=== PATIENT | female | born 1965 | race African-American/Black ===

== ENCOUNTER 2016-09-08 16:15 | Observation (INO) | payer OTHER ==
[~2016-09-08] VITALS: Ht 172.7 cm; Wt 82.6 kg
[~2016-09-08 16:15] MED LIST: ALPR0.254 PO; ALPR0.5T6 PO; BENZ15SO MM; DIAZ5TAB PO; GABA-585 PO; HYDR-2666 PO; HYDR-971 PO; ONDA4TAB10 SL; OXYC-244 PO; OXYC-250 PO; OXYC-323 PO; OXYC15TA60 PO
[2016-09-08] MEDS ORDERED: ONDANSETRON PF 4 MG/2 ML VIAL. IV PRN ×2 (17:00→19:30)
[2016-09-08] MEDS: HYDROMORPHONE 2 MG/ML VIAL. IV PRN ×4 (17:36→22:26)
[2016-09-08 17:51] LABS: BASO % 1 % (0-3); EOS % 2 % (0-3); HEMATOCRIT 41.7 % (36.0-47.0); HEMOGLOBIN 14.2 g/dL (12.0-15.5); LYMPH # 2.2 x10^3/uL (1.0-4.8); LYMPH % 32 % (24-48); MEAN CORPUSCULAR HEMOGLOBIN 31 pg (25-35); MEAN CORPUSCULAR HGB CONC 34 g/dL (31-37); MEAN CORPUSCULAR VOLUME 91 fL (79-100); MONO % 7 % (0-9); NEUT % 59 % (31-73); PLATELET COUNT 134 x10^3/uL (140-400); RED BLOOD COUNT 4.58 x10^6/uL (3.50-5.40); RED CELL DISTRIBUTION WIDTH 13.9 % (11.5-14.5); WHITE BLOOD COUNT 6.9 x10^3/uL (4.0-11.0)
[2016-09-08 18:23] LABS: CALCIUM 8.9 mg/dL (8.5-10.1); CREATININE 0.9 mg/dL (0.6-1.0); GFR 79.3; POTASSIUM 4.1 mmol/L (3.5-5.1)
[2016-09-08 19:10] LABS: C-REACTIVE PROTEIN 3.8 mg/L (0-3.3)
[2016-09-08] MEDS ORDERED: GADOBUTROL 7.5 MMOL/7.5 ML VIAL IV ONE (19:15)
[2016-09-08] MEDS ORDERED: MORPHINE SULFATE 2 MG/ML DISP.SYRIN. IV PRN (19:30)
--- NOTE | 2016-09-08 19:59 | RAD ---
PROCEDURE MRI lumbar spine without intravenous contrast. HISTORY Low back pain with right leg weakness. History of breast cancer. TECHNIQUE Routine multiplanar, multi sequence MRI of the lumbar spine was performed without intravenous contrast. Patient declined intravenous contrast administration. COMPARISON CT abdomen pelvis March 01, 2016. FINDINGS There is significant motion artifact on multiple sequences which could obscure subtle to medium-sized abnormalities. Vertebral heights maintained. No bone marrow edema is identified. The conus medullaris may be slightly low with the tip of the conus medullaris possibly at the L2-3 level, although exact delineation is limited secondary to the motion artifact. No spinal canal stenosis or neural foraminal narrowing is identified at any level. L3-4 level demonstrates mild bilateral buckling ligamentum flavum. There is mild bilateral facet hypertrophy. L4-5 level demonstrates mild degenerative loss of the T2 signal. There is a mild disc bulge asymmetric to the left. There is mild bilateral facet hypertrophy and buckling ligamentum flavum. L5-S1 level demonstrates mild bilateral facet hypertrophy. IMPRESSION 1. No acute abnormality identified in the lumbar spine. No spinal canal stenosis or neural foraminal narrowing is identified at any level. 2. Conus medullaris may be low lying, possibly located at the L2-3 level interspace. Electronically signed by: Vasyl Edwards MD (Sep 08, 2016 19:58:27)
[2016-09-08 21:05] VITALS: BP 110/65
--- NOTE | 2016-09-08 21:14 | PHYS DOC ---
Past Medical History Past Medical History: Cancer, Fibromyalgia, Heart Disease, Sciatica, Other Additional Past Medical Histor: RA, abd hernia, neuropathy Past Surgical History: Cancer Surgery, Other Additional Past Surgical Histo: R knee, hernia removal, Alcohol Use: None Drug Use: None Adult General Chief Complaint Chief Complaint: HIP PAIN HPI HPI 51-year-old female presenting to the emergency department today with right hip pain, low back pain and right knee pain. She describes the pain is severe and reports numbness in her right foot. When I touch the foot she pulls back reportedly in severe pain. so it appears that she can feel the foot. She has a history of breast cancer and reports surgical removal. She has a history of trying to get into the pain clinic however has been unsuccessful. She has a history of fibromyalgia. Sharp severe radiating down her right side and associated with reported numbness in the foot. Review of Systems Review of Systems ROS negative for chest pain shortness of breath abdominal pain nausea vomiting. All other review of systems is negative unless otherwise noted in history of present illness. Current Medications Current Medications Current Medications Medications (Trade) Dose Ordered Sig/Trupti Start Time Stop Time Status Last Admin Dose Admin Gadobutrol (Gadavist) 7.5 mmol 1X ONCE 09/08/16 19:15 09/08/16 19:16 DC Hydromorphone HCl (Dilaudid) 0.5 mg PRN Q1HR PRN 09/08/16 17:00 09/08/16 20:34 DC 09/08/16 20:34 0.5 MG Morphine Sulfate 2 mg PRN Q2HR PRN 09/08/16 19:30 09/09/16 19:29 Ondansetron HCl (Zofran) 4 mg PRN Q8HRS PRN 09/08/16 19:30 09/09/16 19:29 Allergies Allergies Allergies Coded Allergies Type Severity Reaction Last Updated Verified Penicillins Allergy Intermediate Rash 06/02/16 Yes strawberry Allergy Intermediate 06/02/16 Yes Physical Exam Physical Exam Constitutional: Well developed, well nourished, no acute distress, non-toxic appearance. HENT: Normocephalic, atraumatic, bilateral external ears normal, oropharynx moist, no oral exudates, nose normal. [] Eyes: PERRLA, EOMI, conjunctiva normal, no discharge. [] Neck: Normal range of motion, no tenderness, supple, no stridor. Cardiovascular:Heart rate regular rhythm, no murmur [] Lungs & Thorax: Bilateral breath sounds clear to auscultation [] Abdomen: Bowel sounds normal, soft, no tenderness, no masses, no pulsatile masses. Skin: Warm, dry, no erythema, no rash. [] Back: No tenderness, no CVA tenderness. Extremities: No tenderness, no cyanosis, no clubbing, ROM intact, no edema. [] Neurologic: Mental status: Awake oriented and alert x3 Cranial nerves: Extraocular movements intact, eyebrows fan bilaterally smile symmetric, uvula elevation, shoulder shrug intact, tongue protrusion normal DTRs: 2+ in the knees. Sensation: Patient reports decreased sensation of the foot however demonstrates sensation by pulling back when I touch the foot. Strength: 5 out of 5 strength in the patient's upper extremities. The patient reports that she is unable to wiggle her right toes. She does move the foot back when I touch her foot. Psychologic: Affect normal, judgement normal, mood normal. Current Patient Data Vital Signs Vital Signs Date Time Temp Pulse Resp B/P Pulse Ox O2 Delivery O2 Flow Rate FiO2 09/08/16 18:58 66 18 130/78 97 Room Air 09/08/16 16:53 98.4 98.4 Lab Values Laboratory Tests Test 09/08/16 15:30 White Blood Count 6.9x10^3/uL (4.0-11.0) Red Blood Count 4.58x10^6/uL (3.50-5.40) Hemoglobin 14.2g/dL (12.0-15.5) Hematocrit 41.7% (36.0-47.0) Mean Corpuscular Volume 91fL (79-100) Mean Corpuscular Hemoglobin 31pg (25-35) Mean Corpuscular Hemoglobin Concent 34g/dL (31-37) Red Cell Distribution Width 13.9% (11.5-14.5) Platelet Count 134x10^3/uL (140-400) L Neutrophils (%) (Auto) 59% (31-73) Lymphocytes (%) (Auto) 32% (24-48) Monocytes (%) (Auto) 7% (0-9) Eosinophils (%) (Auto) 2% (0-3) Basophils (%) (Auto) 1% (0-3) Neutrophils # (Auto) 4.0x10^3uL (1.8-7.7) Lymphocytes # (Auto) 2.2x10^3/uL (1.0-4.8) Monocytes # (Auto) 0.5x10^3/uL (0.0-1.1) Eosinophils # (Auto) 0.2x10^3/uL (0.0-0.7) Basophils # (Auto) 0.0x10^3/uL (0.0-0.2) Erythrocyte Sedimentation Rate 10 (0-25) Sodium Level 143mmol/L (136-145) Potassium Level 4.1mmol/L (3.5-5.1) Chloride Level 108mmol/L (98-107) H Carbon Dioxide Level 29mmol/L (21-32) Anion Gap 6 (6-14) Blood Urea Nitrogen 13mg/dL (7-20) Creatinine 0.9mg/dL (0.6-1.0) Estimated GFR (Cockcroft-Gault) 79.3 Glucose Level 94mg/dL (70-99) Calcium Level 8.9mg/dL (8.5-10.1) C-Reactive Protein, Quantitative 3.8mg/L (0-3.3) H Laboratory Tests 09/08/16 15:30 Laboratory Tests 09/08/16 15:30 EKG EKG [] Radiology/Procedures Radiology/Procedures [facility] [address] [place], [place] [id number] IMAGING REPORT Signed PATIENT: ALVERTO ROGER ACCOUNT: [id number] : 1965 LOCATION: ER AGE: 51 SEX: F EXAM STATUS: REG ER ORD. PHYSICIAN: GREGORIO GARCIA MD REASON: pt with lumbar back pain and decreased sensation in the foot PROCEDURE: LUMBAR SPINE WO CONTRAST PROCEDURE MRI lumbar spine without intravenous contrast. HISTORY Low back pain with right leg weakness. History of breast cancer. TECHNIQUE Routine multiplanar, multi sequence MRI of the lumbar spine was performed without intravenous contrast. Patient declined intravenous contrast administration. COMPARISON CT abdomen pelvis March 01, 2016. FINDINGS There is significant motion artifact on multiple sequences which could obscure subtle to medium-sized abnormalities. Vertebral heights maintained. No bone marrow edema is identified. The conus medullaris may be slightly low with the tip of the conus medullaris possibly at the L2-3 level, although exact delineation is limited secondary to the motion artifact. No spinal canal stenosis or neural foraminal narrowing is identified at any level. L3-4 level demonstrates mild bilateral buckling ligamentum flavum. There is mild bilateral facet hypertrophy. L4-5 level demonstrates mild degenerative loss of the T2 signal. There is a mild disc bulge asymmetric to the left. There is mild bilateral facet hypertrophy and buckling ligamentum flavum. L5-S1 level demonstrates mild bilateral facet hypertrophy. IMPRESSION 1. No acute abnormality identified in the lumbar spine. No spinal canal stenosis or neural foraminal narrowing is identified at any level. 2. Conus medullaris may be low lying, possibly located at the L2-3 level interspace. Electronically signed by: Vasyl Collier MD (Sep 08, 2016 19:58:27) DICTATED and SIGNED BY: VASYL COLLIER MD DATE: 09/08/161957 CC: GREGORIO GARCIA MD; UNKNOWN PCP NAME ~ [] Course & Med Decision Making Course & Med Decision Making Pertinent Labs and Imaging studies reviewed. (See chart for details) [] 51-year-old female with low back pain and right hip pain and right knee pain. On evaluation the patient was afebrile with mild hypertension. Physical exam showed normal deep tendon reflexes with 2+ deep tendon reflexes of the knee. She reported not being able to move her toes, given her low back pain and MRI was obtained. MRI was within normal limits. Son physical exam the patient's knee was swollen and warm to touch. X-rays were obtained which did not show any obvious acute fracture. Mild swelling of the knee joint. Blood work was obtained which showed a normal WBC. Hemoglobin within the reference range of normal. Chemistry panel showed elevated CRP at 3.8. ESR was within normal limits. CT of the head ordered. The patient's pain was difficult to control in the emergency department so the patient was admitted for IV pain control. I placed an orthopedic consultation for the patient's right warm knee joint to evaluate for possible aspiration. Because of the patient's neurologic changes and low back pain I placed consultation for our spinal surgery team. Dragon Disclaimer Dragon Disclaimer This electronic medical record was generated, in whole or in part, using a voice recognition dictation system. Departure Departure Impression: Primary Impression: Right leg pain Additional Impression: Weakness of right foot Disposition: 09 ADMITTED INPATIENT Admitting Physician: Bri Benjamin Condition: STABLE Referrals: UNKNOWN PCP NAME (PCP) Problem Qualifiers GREGORIO GARCIA MD Sep 08, 2016 21:14
--- NOTE | 2016-09-08 21:45 | RAD ---
PROCEDURE CT head without intravenous contrast. HISTORY Generalized weakness. TECHNIQUE Axial images are obtained of the head from the skull base through the vertex without IV contrast Exposure: One or more of the following individualized dose reduction techniques were utilized for this examination: 1. Automated exposure control. 2. Adjustment of the mA and/or kV according to patient size. 3. Use of iterative reconstruction technique. COMPARISON None. FINDINGS The ventricles are appropriate in size, shape, and location for the patient's age.No obvious intracranial mass, mass-effect, midline shift, hemorrhage or obvious acute infarction is identified.Basilar cisterns are patent. Bone windows demonstrate no acute calvarial abnormality.Left maxillary sinus disease is seen. IMPRESSION 1. No acute intracranial process. Please note that CT can be relatively insensitive to acute ischemic infarction for up to 24 hours after symptom onset. 2. Left maxillary sinus disease. Electronically signed by: Vasyl Edwards MD (Sep 08, 2016 21:44:17)
[2016-09-08 23:00] VITALS: BP 121/67
[2016-09-08] MEDS ORDERED: OXYCODONE/APAP 10/325 TABLET. PO PRN (23:30)
--- NOTE | 2016-09-08 23:44 | HP ---
ADMIT DATE: 09/08/2016 CHIEF COMPLAINT: Hip pain. HISTORY OF PRESENT ILLNESS: The patient is a pleasant 51-year-old female well known to my service. She has some chronic pain issues and narcotic dependence, but today she does indeed have some progressive pain. She also has a right knee that is swollen. Her pain is down the right iliotibial band as well it is intractable. I have discussed the case with the ER physician. We are going to admit the patient and consult orthopedics. PAST MEDICAL HISTORY: Fibromyalgia, some type of cancer, coronary artery disease, rheumatoid arthritis, abdominal hernia, neuropathy, cancer surgery, right knee surgery, hernia repair. ALLERGIES: PENICILLIN AND STRAWBERRIES. FAMILY HISTORY: Coronary artery disease. SOCIAL HISTORY: She does not drink, smoke or take drugs. MEDICATIONS: Reviewed, please refer to the MRAD. REVIEW OF SYSTEMS: GENERAL: No history of weight change, weakness or fevers. SKIN: No bruising, hair changes or rashes. EYES: No blurred, double or loss of vision. NOSE AND THROAT: No history of nosebleeds, hoarseness or sore throat. HEART: No history of palpitations, chest pain or shortness of breath on exertion. LUNGS: Denies cough, hemoptysis, wheezing or shortness of breath. GASTROINTESTINAL: Denies changes in appetite, nausea, vomiting, diarrhea or constipation. GENITOURINARY: No history of frequency, urgency, hesitancy or nocturia. NEUROLOGIC: Denies history of numbness, tingling, tremor or weakness. PSYCHIATRIC: No history of panic, anxiety or depression. ENDOCRINE: No history of heat or cold intolerance, polyuria or polydipsia. MUSCULOSKELETAL: She complains of right leg pain and right hip pain and right knee pain. PHYSICAL EXAMINATION: VITAL SIGNS: Temperature afebrile, pulse 67, respirations 22, blood pressure 110/65, O2 sat 95% on room air. GENERAL: She is alert, cooperative, pleasant. HEART: Normal S1, S2. LUNGS: Clear. ABDOMEN: Soft, positive bowel sounds. EXTREMITIES: The right leg is tender in the hip down the lateral aspect of the right leg and the right knee and the ankle. ENDOCRINE: No thyromegaly. LYMPHATICS: No cervical nodes. HEMATOPOIETIC: No bruising. LABORATORY DATA: Electrolytes are normal. C-reactive protein is a little high at 3.8. Hematology normal. ASSESSMENT AND PLAN: Intractable pain on the right leg with joint effusion of the right knee. The patient is being admitted. We will consult Orthopedics, p.r.n. narcotics, IV fluids, p.r.n. antiemetics, continue home medicines. NATACHA MADDOX DO DR: HAKEEM/asra JOB#: [id number] / [id number]
[2016-09-09] MEDS: HYDROCODONE/APAP 5/325MG TABLET. PO PRN ×2 (00:46→10:20)
[2016-09-09] MEDS: HYDROMORPHONE 2 MG/ML VIAL. IV PRN ×3 (00:46→06:30)
[2016-09-09 03:00] VITALS: BP 111/77
[2016-09-09] MEDS: ONDANSETRON ODT 4 MG TAB.RAPDIS PO SCH ×3 (04:47→21:00)
[2016-09-09 06:33] LABS: BASO % 1 % (0-3); EOS % 2 % (0-3); HEMATOCRIT 38.1 % (36.0-47.0); LYMPH # 2.3 x10^3/uL (1.0-4.8); LYMPH % 43 % (24-48); MEAN CORPUSCULAR HEMOGLOBIN 31 pg (25-35); MEAN CORPUSCULAR HGB CONC 34 g/dL (31-37); MEAN CORPUSCULAR VOLUME 91 fL (79-100); MONO % 8 % (0-9); NEUT % 46 % (31-73); PLATELET COUNT 118 x10^3/uL (140-400); RED BLOOD COUNT 4.18 x10^6/uL (3.50-5.40); RED CELL DISTRIBUTION WIDTH 13.5 % (11.5-14.5); WHITE BLOOD COUNT 5.5 x10^3/uL (4.0-11.0)
[2016-09-09 06:47] LABS: CALCIUM 8.7 mg/dL (8.5-10.1); CREATININE 0.8 mg/dL (0.6-1.0); GFR 90.8; POTASSIUM 4.3 mmol/L (3.5-5.1)
[2016-09-09 07:00] VITALS: BP 119/82
[2016-09-09] MEDS: GABAPENTIN 300 MG CAPSULE. PO SCH ×3 (08:12→21:00)
[2016-09-09] MEDS: ALPRAZOLAM 0.5 MG TABLET PO SCH ×3 (08:12→21:00)
[2016-09-09] MEDS: OXYCODONE ER 15 MG TAB.ER.12H. PO SCH ×2 (08:12→21:00)
[2016-09-09] MEDS: DOCUSATE SODIUM 100 MG CAPSULE PO PRN ×2 (08:20→21:00)
--- NOTE | 2016-09-09 08:22 | RAD ---
Right knee, 3 views, 09/08/2016: History: Knee pain, arthritis There is moderate marginal spurring at the knee joint and at the patellofemoral articulation. There is considerable chondrocalcinosis. No acute fracture or dislocation is identified. There is spurring at the tibial tuberosity. There is a suggestion of a small joint effusion. IMPRESSION: 1. Moderately severe hypertrophic degenerative change with chondrocalcinosis. 2. No acute bony abnormality is detected.
[2016-09-09 11:00] VITALS: BP 97/57
[2016-09-09] MEDS ORDERED: BENZOCAINE/MENTHOL LOZENGE. PO PRN (13:15)
--- NOTE | 2016-09-09 14:34 | PDOC ---
PROGRESS NOTES Chief Complaint Chief Complaint R knee swelling ASSESSMENT AND PLAN: 1. R knee pain: acute on chronic. has not been able to bend knee for about 5 months. Xray with "moderately severe hypertrophic degenerative change with chondrocalcinosis". had arthroscopic chondroplasty years ago in same knee. Ortho consulted; awaiting input. 2. pain control: no narcotics at home. has oxyER and IR here. no IV narcotics for chronic pain. 3. Arthritis: ?RA vs OA. NSAIDS, pain regimen as above. consult pain clinic. 4. breast CA: [id number]; on herceptin 5. Peripheral neuropathy: poss chemo induced. on gabapentin Vitals Vitals Vital Signs Date Time Temp Pulse Resp B/P Pulse Ox O2 Delivery O2 Flow Rate FiO2 09/09/16 12:30 Room Air 09/09/16 11:00 100.0 67 16 97/57 98 100.0 Physical Exam General: Alert, Cooperative, No acute distress Heart: Regular rate Lungs: Clear Abdomen: Normal bowel sounds, Soft Extremities: No clubbing, Other (R knee knobby with pain to palp, unable to adduct) Labs LABS Laboratory Tests Test 09/08/16 15:30 09/09/16 05:50 09/09/16 05:55 White Blood Count 6.9x10^3/uL (4.0-11.0) 5.5x10^3/uL (4.0-11.0) Red Blood Count 4.58x10^6/uL (3.50-5.40) 4.18x10^6/uL (3.50-5.40) Hemoglobin 14.2g/dL (12.0-15.5) 13.0g/dL (12.0-15.5) Hematocrit 41.7% (36.0-47.0) 38.1% (36.0-47.0) Mean Corpuscular Volume 91fL (79-100) 91fL (79-100) Mean Corpuscular Hemoglobin 31pg (25-35) 31pg (25-35) Mean Corpuscular Hemoglobin Concent 34g/dL (31-37) 34g/dL (31-37) Red Cell Distribution Width 13.9% (11.5-14.5) 13.5% (11.5-14.5) Platelet Count 134x10^3/uL (140-400) 118x10^3/uL (140-400) Neutrophils (%) (Auto) 59% (31-73) 46% (31-73) Lymphocytes (%) (Auto) 32% (24-48) 43% (24-48) Monocytes (%) (Auto) 7% (0-9) 8% (0-9) Eosinophils (%) (Auto) 2% (0-3) 2% (0-3) Basophils (%) (Auto) 1% (0-3) 1% (0-3) Neutrophils # (Auto) 4.0x10^3uL (1.8-7.7) 2.5x10^3uL (1.8-7.7) Lymphocytes # (Auto) 2.2x10^3/uL (1.0-4.8) 2.3x10^3/uL (1.0-4.8) Monocytes # (Auto) 0.5x10^3/uL (0.0-1.1) 0.4x10^3/uL (0.0-1.1) Eosinophils # (Auto) 0.2x10^3/uL (0.0-0.7) 0.1x10^3/uL (0.0-0.7) Basophils # (Auto) 0.0x10^3/uL (0.0-0.2) 0.0x10^3/uL (0.0-0.2) Erythrocyte Sedimentation Rate 10 (0-25) Sodium Level 143mmol/L (136-145) 141mmol/L (136-145) Potassium Level 4.1mmol/L (3.5-5.1) 4.3mmol/L (3.5-5.1) Chloride Level 108mmol/L (98-107) 105mmol/L (98-107) Carbon Dioxide Level 29mmol/L (21-32) 29mmol/L (21-32) Anion Gap 6 (6-14) 7 (6-14) Blood Urea Nitrogen 13mg/dL (7-20) 11mg/dL (7-20) Creatinine 0.9mg/dL (0.6-1.0) 0.8mg/dL (0.6-1.0) Estimated GFR (Cockcroft-Gault) 79.3 90.8 Glucose Level 94mg/dL (70-99) 101mg/dL (70-99) Calcium Level 8.9mg/dL (8.5-10.1) 8.7mg/dL (8.5-10.1) C-Reactive Protein, Quantitative 3.8mg/L (0-3.3) Review of Systems Review of Systems able to ambulate, but feels like she is dragging her foot b/o pain Comment Review of Relevant I have reviewed the following items rogelio (where applicable) has been applied. Labs Laboratory Tests Test 09/08/16 15:30 09/09/16 05:50 09/09/16 05:55 White Blood Count 6.9x10^3/uL (4.0-11.0) 5.5x10^3/uL (4.0-11.0) Red Blood Count 4.58x10^6/uL (3.50-5.40) 4.18x10^6/uL (3.50-5.40) Hemoglobin 14.2g/dL (12.0-15.5) 13.0g/dL (12.0-15.5) Hematocrit 41.7% (36.0-47.0) 38.1% (36.0-47.0) Mean Corpuscular Volume 91fL (79-100) 91fL (79-100) Mean Corpuscular Hemoglobin 31pg (25-35) 31pg (25-35) Mean Corpuscular Hemoglobin Concent 34g/dL (31-37) 34g/dL (31-37) Red Cell Distribution Width 13.9% (11.5-14.5) 13.5% (11.5-14.5) Platelet Count 134x10^3/uL (140-400) 118x10^3/uL (140-400) Neutrophils (%) (Auto) 59% (31-73) 46% (31-73) Lymphocytes (%) (Auto) 32% (24-48) 43% (24-48) Monocytes (%) (Auto) 7% (0-9) 8% (0-9) Eosinophils (%) (Auto) 2% (0-3) 2% (0-3) Basophils (%) (Auto) 1% (0-3) 1% (0-3) Neutrophils # (Auto) 4.0x10^3uL (1.8-7.7) 2.5x10^3uL (1.8-7.7) Lymphocytes # (Auto) 2.2x10^3/uL (1.0-4.8) 2.3x10^3/uL (1.0-4.8) Monocytes # (Auto) 0.5x10^3/uL (0.0-1.1) 0.4x10^3/uL (0.0-1.1) Eosinophils # (Auto) 0.2x10^3/uL (0.0-0.7) 0.1x10^3/uL (0.0-0.7) Basophils # (Auto) 0.0x10^3/uL (0.0-0.2) 0.0x10^3/uL (0.0-0.2) Erythrocyte Sedimentation Rate 10 (0-25) Sodium Level 143mmol/L (136-145) 141mmol/L (136-145) Potassium Level 4.1mmol/L (3.5-5.1) 4.3mmol/L (3.5-5.1) Chloride Level 108mmol/L (98-107) 105mmol/L (98-107) Carbon Dioxide Level 29mmol/L (21-32) 29mmol/L (21-32) Anion Gap 6 (6-14) 7 (6-14) Blood Urea Nitrogen 13mg/dL (7-20) 11mg/dL (7-20) Creatinine 0.9mg/dL (0.6-1.0) 0.8mg/dL (0.6-1.0) Estimated GFR (Cockcroft-Gault) 79.3 90.8 Glucose Level 94mg/dL (70-99) 101mg/dL (70-99) Calcium Level 8.9mg/dL (8.5-10.1) 8.7mg/dL (8.5-10.1) C-Reactive Protein, Quantitative 3.8mg/L (0-3.3) Laboratory Tests Test 09/08/16 15:30 09/09/16 05:50 09/09/16 05:55 White Blood Count 6.9x10^3/uL (4.0-11.0) 5.5x10^3/uL (4.0-11.0) Red Blood Count 4.58x10^6/uL (3.50-5.40) 4.18x10^6/uL (3.50-5.40) Hemoglobin 14.2g/dL (12.0-15.5) 13.0g/dL (12.0-15.5) Hematocrit 41.7% (36.0-47.0) 38.1% (36.0-47.0) Mean Corpuscular Volume 91fL (79-100) 91fL (79-100) Mean Corpuscular Hemoglobin 31pg (25-35) 31pg (25-35) Mean Corpuscular Hemoglobin Concent 34g/dL (31-37) 34g/dL (31-37) Red Cell Distribution Width 13.9% (11.5-14.5) 13.5% (11.5-14.5) Platelet Count 134x10^3/uL (140-400) 118x10^3/uL (140-400) Neutrophils (%) (Auto) 59% (31-73) 46% (31-73) Lymphocytes (%) (Auto) 32% (24-48) 43% (24-48) Monocytes (%) (Auto) 7% (0-9) 8% (0-9) Eosinophils (%) (Auto) 2% (0-3) 2% (0-3) Basophils (%) (Auto) 1% (0-3) 1% (0-3) Neutrophils # (Auto) 4.0x10^3uL (1.8-7.7) 2.5x10^3uL (1.8-7.7) Lymphocytes # (Auto) 2.2x10^3/uL (1.0-4.8) 2.3x10^3/uL (1.0-4.8) Monocytes # (Auto) 0.5x10^3/uL (0.0-1.1) 0.4x10^3/uL (0.0-1.1) Eosinophils # (Auto) 0.2x10^3/uL (0.0-0.7) 0.1x10^3/uL (0.0-0.7) Basophils # (Auto) 0.0x10^3/uL (0.0-0.2) 0.0x10^3/uL (0.0-0.2) Erythrocyte Sedimentation Rate 10 (0-25) Sodium Level 143mmol/L (136-145) 141mmol/L (136-145) Potassium Level 4.1mmol/L (3.5-5.1) 4.3mmol/L (3.5-5.1) Chloride Level 108mmol/L (98-107) 105mmol/L (98-107) Carbon Dioxide Level 29mmol/L (21-32) 29mmol/L (21-32) Anion Gap 6 (6-14) 7 (6-14) Blood Urea Nitrogen 13mg/dL (7-20) 11mg/dL (7-20) Creatinine 0.9mg/dL (0.6-1.0) 0.8mg/dL (0.6-1.0) Estimated GFR (Cockcroft-Gault) 79.3 90.8 Glucose Level 94mg/dL (70-99) 101mg/dL (70-99) Calcium Level 8.9mg/dL (8.5-10.1) 8.7mg/dL (8.5-10.1) C-Reactive Protein, Quantitative 3.8mg/L (0-3.3) Medications Current Medications Hydromorphone HCl (Dilaudid) 0.5 mg PRN Q1HR PRN IV SEVERE PAIN Last administered on 09/08/16t 20:34; Start 09/08/16 at 17:00; Stop 09/08/16 at 20:34 ; Status DC Ondansetron HCl (Zofran) 4 mg PRN Q30MIN PRN IV NAUSEA/VOMITING Last administered on 09/08/16t 17:35; Start 09/08/16 at 17:00 Gadobutrol (Gadavist) 7.5 mmol 1X ONCE IV ; Start 09/08/16 at 19:15; Stop 09/08 at 19:16; Status DC Ondansetron HCl (Zofran) 4 mg PRN Q8HRS PRN IV NAUSEA/VOMITING Last administered on 09/09/16 10:20; Start 09/08/16 at 19:30; Stop 09/09/16 at 19:29 Morphine Sulfate 2 mg PRN Q2HR PRN IV PAIN; Start 09/08/16 at 19:30; Stop 09/08 at 21:54; Status DC Hydromorphone HCl (Dilaudid) 1 mg PRN Q2HR PRN IV PAIN Last administered on 00:46; Start 09/08/16 at 22:00 Acetaminophen/ Hydrocodone Bitart (Lortab 5/325) 1 tab PRN Q6HRS PRN PO PAIN Last administered on 09/09/16 10:20; Start 09/08/16 at 22:00 Alprazolam (Xanax) 0.5 mg TID PO Last administered on 09/09/16 08:12; Start at 09:00 Gabapentin (Neurontin) 300 mg TID PO Last administered on 09/09/16 08:12; Start 09/09/16 at 09:00 Ondansetron HCl (Zofran Odt) 4 mg Q8HRS PO ; Start 09/09/16 at 06:00 Oxycodone HCl (Oxycontin) 15 mg Q12HR PO Last administered on 09/09/16 08:12; Start 09/09/16 at 09:00 Oxycodone/ Acetaminophen (Percocet 10/325) 1 tab QIDPRN PRN PO PAIN; Start at 23:30 Docusate Sodium (Colace) 100 mg PRN BID PRN PO CONSTIPATION Last administered on 09/09/16 08:20; Start 09/09/16 at 00:30 Throat Lozenges (Cepacol Sore Throat Lozenge) 1 fady PRN Q2HRS PRN PO SORE THROAT; Start 09/09/16 at 13:15 Active Scripts Active [place] 5-325 Tablet (Acetaminophen/Hydrocodone Bitart) 1 Each Tablet 1-2 Tab PO PRN Q6HRS PRN Oxycontin (Oxycodone HCl) 15 Mg Tab.er.12h 15 Mg PO Q12HR Gabapentin 100 Mg Capsule 300 Mg PO TID Percocet 10-325 Mg Tablet (Oxycodone/Acetaminophen) 1 Each Tablet 1 Tab PO Q4- 6HRS Alprazolam 0.5 Mg Tablet 1 Tab PO TID Zofran Odt (Ondansetron) 4 Mg Tab.rapdis 1 Tab SL Q8HRS Vitals/I & O Vital Sign - Last 24 Hours 09/08/16 09/08/16 09/08/16 09/08/16 16:53 17:36 17:53 18:06 Temp 98.4 98.4 Pulse 68 Resp 16 20 18 16 B/P 141/71 125/82 Pulse Ox 97 98 97 O2 Delivery Room Air Room Air Room Air Room Air 09/08/16 09/08/16 09/08/16 09/08/16 18:37 18:50 18:58 20:00 Pulse 68 66 Resp 17 18 18 B/P 133/81 130/78 Pulse Ox 99 98 97 O2 Delivery Room Air Room Air Room Air Room Air 09/08/16 09/08/16 09/08/16 09/08/16 20:34 21:05 22:26 23:00 Temp 98.4 98.5 98.4 98.5 Pulse 74 75 Resp 18 18 18 18 B/P 110/65 121/67 Pulse Ox 98 95 O2 Delivery Room Air Room Air Room Air Room Air 09/09/16 09/09/16 09/09/16 09/09/16 00:46 01:24 03:00 07:00 Temp 97.9 98.6 97.9 98.6 Pulse 56 66 Resp 20 18 18 18 B/P 111/77 119/82 Pulse Ox 97 O2 Delivery Room Air Room Air Room Air Room Air 09/09/16 09/09/16 09/09/16 09/09/16 08:12 10:20 11:00 11:22 Temp 100.0 100.0 Pulse 67 Resp 16 B/P 97/57 Pulse Ox 98 O2 Delivery Room Air Room Air Room Air Room Air 09/09/16 12:30 O2 Delivery Room Air Intake and Output 09/08/16 09/08/16 09/09/16 15:00 23:00 07:00 Intake Total 3000 ml Balance 3000 ml SUAD MONTEZ MD Sep 09, 2016 14:33
[2016-09-09 15:00] VITALS: BP 121/79
[2016-09-09 19:00] VITALS: BP 118/62
--- NOTE | 2016-09-10 07:30 | RAD ---
Pelvis with right hip, 2 views, 09/09/2016: History: Hip pain The bony structures are demineralized. No fracture or destructive bony lesion is seen. The hip joints are well-preserved with only mild marginal spurring. Moderate arthritic change is evident at the symphysis pubis. IMPRESSION: 1. Demineralization. 2. No acute bony abnormality is detected.
== END 2016-09-09 23:00 | disposition home or self-care (01) ==
LOC: ER 16:15 → 4 NORTH 19:35
PROVIDERS: ADMIT Internal Medicine; ATTEND Internal Medicine
DX: M25.461 Effusion, right knee (principal); M25.551 Pain in right hip; R53.1 Weakness; M79.7 Fibromyalgia; M54.5 Low back pain; G89.29 Other chronic pain; I25.10 Atherosclerotic heart disease of native coronary artery without angina pectoris; M11.20 Other chondrocalcinosis, unspecified site; F11.20 Opioid dependence, uncomplicated; M79.661 Pain in right lower leg; M54.30 Sciatica, unspecified side; M06.9 Rheumatoid arthritis, unspecified; G62.9 Polyneuropathy, unspecified; M25.561 Pain in right knee; R20.0 Anesthesia of skin; Z82.49 Family history of ischemic heart disease and other diseases of the circulatory system; Z85.3 Personal history of malignant neoplasm of breast
CPT/HCPCS: 36415; 70450; 72148; 73501; 73562; 80048; 85027; 85651; 86140; 96374; 96375; 96376; 99285; G0378; J1170; J2405; Q0162; G0379

== ENCOUNTER 2016-12-16 17:10 | Emergency (ER) | payer OTHER ==
[~2016-12-16] VITALS: Ht 172.7 cm; Wt 82.6 kg
[2016-12-16] MEDS ORDERED: HYDROCODONE/APAP 5/325MG TABLET. PO ONE (19:00)
[2016-12-16 19:08] LABS: BILIRUBIN,URINE NEGATIVE (NEG); GLUCOSE,URINE NEGATIVE (NEG); NITRITE,URINE NEGATIVE (NEG); PROTEIN,URINE NEGATIVE (NEG-TRACE)
[2016-12-16 19:13] LABS: BACTERIA,URINE 0 /HPF (0-FEW); RBC,URINE 0 /HPF (0-2); SQUAMOUS EPITHELIAL CELL,UR FEW /LPF; WBC,URINE OCC /HPF (0-4)
[2016-12-16] MEDS ORDERED: ONDANSETRON PF 4 MG/2 ML VIAL. IV ONE (19:15)
[2016-12-16 19:25] LABS: BASO % 1 % (0-3); EOS % 5 % (0-3); HEMATOCRIT 41.8 % (36.0-47.0); HEMOGLOBIN 14.5 g/dL (12.0-15.5); LYMPH % 36 % (24-48); MEAN CORPUSCULAR HEMOGLOBIN 33 pg (25-35); MEAN CORPUSCULAR HGB CONC 35 g/dL (31-37); MEAN CORPUSCULAR VOLUME 94 fL (79-100); MONO % 6 % (0-9); NEUT % 53 % (31-73); PLATELET COUNT 125 x10^3/uL (140-400); RED BLOOD COUNT 4.44 x10^6/uL (3.50-5.40); RED CELL DISTRIBUTION WIDTH 12.8 % (11.5-14.5); WHITE BLOOD COUNT 5.6 x10^3/uL (4.0-11.0)
[2016-12-16 19:51] LABS: CALCIUM 8.4 mg/dL (8.5-10.1); CREATININE 0.9 mg/dL (0.6-1.0); GFR 79.3; POTASSIUM 3.7 mmol/L (3.5-5.1)
[2016-12-16] MEDS ORDERED: KETOROLAC TROMETHAMINE 60 MG/2 ML INJ. IM ONE (20:30)
--- NOTE | 2016-12-16 20:46 | RAD ---
Examination: Ultrasound pelvis. HISTORY History of postmenopausal spotting. COMPARISON None available. TECHNIQUE Transabdominal, transvaginal ultrasound examination pelvis Findings: The uterus measures 7.1 x 4.4 x 3.1 centimeters. The endometrium is 4.5 millimeters in thickness. The right ovary, left ovary could not be identified. No evidence of free fluid identified in the cul-de-sac Impression: - The visualized uterus, endometrium grossly appears unremarkable. - The right and left ovaries could not be identified. Electronically signed by: Jorge Alberto Beavers (Dec 16, 2016 20:45:29)
[2016-12-16] MEDS ORDERED: BENZ100C PO (20:59)
[2016-12-16] MEDS ORDERED: HYDR-971 PO (20:59)
--- NOTE | 2016-12-16 20:59 | PHYS DOC ---
Past Medical History Past Medical History: Cancer, Fibromyalgia, Heart Disease, Sciatica, Other Additional Past Medical Histor: RA, abd hernia, neuropathy, (breast cancer) Past Surgical History: Cancer Surgery, Other Additional Past Surgical Histo: R knee, hernia removal, Alcohol Use: None Drug Use: None Adult General Chief Complaint Chief Complaint: MULTIPLE COMPLAINTS HPI HPI Patient is a 51 year old female who presents with cough & vaginal bleeding. THe patient reports 3 day history of illness with dry cough, sore throat, nasal congestion, mild generalized headache. She denies fevers, shortness of breath, chest pain. She also reports this morning she had vaginal spotting, & her last menstrual period was 8 years ago. She denies abdominal/pelvic pain, vomiting, dysuria/hematuria, vaginal discharge. Review of Systems Review of Systems Constitutional: Denies fever or chills Eyes: Denies drainage HENT: Reports nasal congestion & sore throat Respiratory: Reports cough, denies shortness of breath Cardiovascular: Denies chest pain or edema GI: Denies abdominal pain, nausea, vomiting : Denies dysuria or hematuria, reports postmenopausal bleeding Musculoskeletal: Denies back pain or joint pain Integument: Denies rash or skin lesions Neurologic: Reports headache, denies focal weakness or sensory changes Current Medications Current Medications Current Medications Medications (Trade) Dose Ordered Sig/Trupti Start Time Stop Time Status Last Admin Dose Admin Acetaminophen/ Hydrocodone Bitart (Lortab 5/325) 2 tab 1X ONCE 12/16/16 19:00 12/16/16 19:01 DC 12/16/16 19:01 2 TAB Ketorolac Tromethamine (Toradol Im) 60 mg 1X ONCE 12/16/16 20:30 12/16/16 20:31 DC 12/16/16 20:37 60 MG Ondansetron HCl (Zofran) 4 mg 1X ONCE 12/16/16 19:15 12/16/16 19:16 DC 12/16/16 19:05 4 MG Allergies Allergies Allergies Coded Allergies Type Severity Reaction Last Updated Verified Penicillins Allergy Intermediate Rash 06/02/16 Yes strawberry Allergy Intermediate 06/02/16 Yes Physical Exam Physical Exam Constitutional: Well developed, well nourished, no acute distress, non-toxic appearance. HENT: Normocephalic, atraumatic, bilateral external ears normal, oropharynx moist, posterior oropharynx mild erythema without tonsillar enlargement/exudate , nose normal. Eyes: PERRLA, EOMI, conjunctiva normal, no discharge. Neck: supple, no stridor. no meningismus Cardiovascular: RRR, no murmurs, no edema. Lungs & Thorax: LCTAB, no wheezing, no respiratory distress. Abdomen: soft, nontender, nondistended. : normal appearing female external genitalia, patient not cooperative with speculum exam, backing away from speculum insertion, pinched nurse during procedure. unable to visualize cervix but I did not see active bleeding Skin: Warm, dry, no erythema, no rash. Back: No CVA tenderness. Extremities: No tenderness, no edema. Neurologic: Alert and oriented X 3, CN2-12 grossly intact, moves all extremities , no focal deficits noted. Psychologic: Affect normal, judgement normal, mood normal. Current Patient Data Vital Signs Vital Signs Date Time Temp Pulse Resp B/P Pulse Ox O2 Delivery O2 Flow Rate FiO2 12/16/16 21:13 61 18 130/81 96 Room Air 12/16/16 17:19 98 98.0 Lab Values Laboratory Tests Test 12/16/16 17:35 12/16/16 19:10 Urine Collection Type Unknown Urine Color Yellow Urine Clarity Cloudy Urine pH 7.0 Urine Specific [place] <=1.005 Urine Protein Negativemg/dL (NEG-TRACE) Urine Glucose (UA) Negativemg/dL (NEG) Urine Ketones (Stick) Negativemg/dL (NEG) Urine Blood Negative (NEG) Urine Nitrite Negative (NEG) Urine Bilirubin Negative (NEG) Urine Urobilinogen Dipstick 1.0mg/dL (0.2 mg/dL) Urine Leukocyte Esterase Trace (NEG) Urine RBC 0/HPF (0-2) Urine WBC Occ/HPF (0-4) Urine Squamous Epithelial Cells Few/LPF Urine Bacteria 0/HPF (0-FEW) White Blood Count 5.6x10^3/uL (4.0-11.0) Red Blood Count 4.44x10^6/uL (3.50-5.40) Hemoglobin 14.5g/dL (12.0-15.5) Hematocrit 41.8% (36.0-47.0) Mean Corpuscular Volume 94fL (79-100) Mean Corpuscular Hemoglobin 33pg (25-35) Mean Corpuscular Hemoglobin Concent 35g/dL (31-37) Red Cell Distribution Width 12.8% (11.5-14.5) Platelet Count 125x10^3/uL (140-400) L Neutrophils (%) (Auto) 53% (31-73) Lymphocytes (%) (Auto) 36% (24-48) Monocytes (%) (Auto) 6% (0-9) Eosinophils (%) (Auto) 5% (0-3) H Basophils (%) (Auto) 1% (0-3) Neutrophils # (Auto) 3.0x10^3uL (1.8-7.7) Lymphocytes # (Auto) 2.0x10^3/uL (1.0-4.8) Monocytes # (Auto) 0.3x10^3/uL (0.0-1.1) Eosinophils # (Auto) 0.3x10^3/uL (0.0-0.7) Basophils # (Auto) 0.0x10^3/uL (0.0-0.2) Sodium Level 142mmol/L (136-145) Potassium Level 3.7mmol/L (3.5-5.1) Chloride Level 105mmol/L (98-107) Carbon Dioxide Level 25mmol/L (21-32) Anion Gap 12 (6-14) Blood Urea Nitrogen 10mg/dL (7-20) Creatinine 0.9mg/dL (0.6-1.0) Estimated GFR (Cockcroft-Gault) 79.3 Glucose Level 107mg/dL (70-99) H Calcium Level 8.4mg/dL (8.5-10.1) L Troponin I Quantitative < 0.017ng/mL (0.000-0.055) YR-Rbl-P-Type Natriuretic Peptide 159pg/mL (0-124) H Laboratory Tests 12/16/16 19:10 Laboratory Tests 12/16/16 19:10 EKG EKG [] Radiology/Procedures Radiology/Procedures PROCEDURE: PELVIS W/TV Examination: Ultrasound pelvis. HISTORY History of postmenopausal spotting. COMPARISON None available. TECHNIQUE Transabdominal, transvaginal ultrasound examination pelvis Findings: The uterus measures 7.1 x 4.4 x 3.1 centimeters. The endometrium is 4.5 millimeters in thickness. The right ovary, left ovary could not be identified. No evidence of free fluid identified in the cul-de-sac Impression: - The visualized uterus, endometrium grossly appears unremarkable. - The right and left ovaries could not be identified. Electronically signed by: Jorge Alberto Beavers (Dec 16, 2016 20:45:29) DICTATED and SIGNED BY: JORGE ALBERTO BEAVERS MD DATE: 12/16/162044 CXR: interpreted by me: no cardiomegaly, no infiltrate, no pneumothorax.[] Course & Med Decision Making Course & Med Decision Making Pertinent Labs and Imaging studies reviewed. (See chart for details) The patient presents with URI symptoms & vaginal bleeding after menopause. Vitals stable, CXR clear, negative strep. No active vaginal bleeding identified although limited exam due to patient compliance, pinching nurse during attempted exam. US not showing definite endometrial thickening. Gave tessalon perles & norco for cough. Recommend rest, PO hydration, tylenol/ ibuprofen for pain or fever, don't take tylenol of using norco. Follow up [facility] PCP in 2-3 days for illness, with gynecology in 1 week, referred to Dr. Connell. Explained potentially serious causes of vaginal bleeding after menopause including endometrial cancer, very important to follow up. Come back for severe chest pain or shortness of breath, severe abdominal pain, heavy vaginal bleeding requiring use of > 1 pad per hour, any otherwise worsening condition. Discharged home in stable condition. [] Dragon Disclaimer Dragon Disclaimer This electronic medical record was generated, in whole or in part, using a voice recognition dictation system. Departure Departure Impression: Primary Impression: Upper respiratory infection Additional Impression: Postmenopausal vaginal bleeding Disposition: 01 HOME, SELF-CARE Condition: STABLE Referrals: UNKNOWN PCP NAME (PCP) ARNOL MONTOYA MD Patient Instructions: Postmenopausal Bleeding, [id number], Upper Respiratory Infection, Adult, [id number] Additional Instructions: You were seen in the emergency department today for upper respiratory infection and vaginal bleeding. There is no sign of pneumonia or strep throat. Please rest , drink fluids, take Tylenol or ibuprofen for pain or fever. Use Tessalon Perles as needed for cough. Dumont may help suppress cough. No drinking alcohol or driving while taking this medication. Follow-up as needed with a primary care physician if not improving in 2-3 days. There was no sign of thick endometrium on the ultrasound but it still very important to follow-up with a public health dietitian when you have bleeding after menopause. Please make an appointment with Dr. Connell in the gynecology clinic within the next week. Return to the emergency department for high fever, severe chest pain or shortness of breath, heavy vaginal bleeding requiring use of more than 1 pad per hour, any otherwise worsening condition. Scripts Hydrocodone/Apap 5-325 (Dumont 5-325 Tablet)1 Each Tablet1 Tab PO PRN Q6HRS PRN PAIN #6 TAB Prov:KODY GARLAND MD 12/16/16 Benzonatate (Tessalon Perle)100 Mg [id number] Mg PO TID PRN COUGH #10 CAP Prov:KODY GARLAND MD 12/16/16 Problem Qualifiers KODY GARLAND MD Dec 16, 2016 20:59
[2016-12-16 21:13] VITALS: BP 130/81
[2016-12-17 06:28] LABS: NEGATIVE OBC STREP NEG; POSITIVE OBC STREP POS
--- NOTE | 2016-12-17 07:56 | RAD ---
Portable chest, 12/16/2016: History: Cough Comparison is made to a study from 06/06/2016. The left Port-A-Cath has been removed. The heart size and pulmonary vascularity are normal. There is mild tortuosity of the thoracic aorta. No pulmonary infiltrates are seen. There is no evidence of pleural fluid. IMPRESSION: No acute cardiopulmonary abnormality is detected.
== END 2016-12-16 21:14 | disposition home or self-care (01) ==
LOC: ER 17:10
DX: N95.0 Postmenopausal bleeding (principal); J06.9 Acute upper respiratory infection, unspecified; R51 Headache; M79.7 Fibromyalgia; M06.9 Rheumatoid arthritis, unspecified; G62.9 Polyneuropathy, unspecified; Z86.79 Personal history of other diseases of the circulatory system; Z88.0 Allergy status to penicillin; Z91.018 Allergy to other foods
CPT/HCPCS: 36415; 71010; 76830; 76856; 80048; 81001; 83880; 84484; 85027; 87070; 87086; 87880; 96372; 96374; 99285; J1885; J2405

== ENCOUNTER 2017-07-19 10:40 | Inpatient (IN) | payer OTHER ==
[~2017-07-19] VITALS: Ht 172.7 cm; Wt 79.4 kg
[~2017-07-19 10:40] MED LIST changes: +BENZ100C PO; -HYDR-2666 PO; +HYDR-2758 PO; -OXYC-244 PO; -OXYC-250 PO; +OXYC-327 PO; +OXYC-328 PO
[2017-07-19] MEDS ORDERED: ONDANSETRON ODT 4 MG TAB.RAPDIS. PO ONE (11:00)
[2017-07-19] MEDS ORDERED: HYDROcodone/APAP 5/325MG 1 TAB TABLET PO ONE (11:00)
--- NOTE | 2017-07-19 11:00 | PHYS DOC ---
Past Medical History Past Medical History: Cancer, Fibromyalgia, Heart Disease, Sciatica, Other Additional Past Medical Histor: RA, abd hernia, neuropathy, (breast cancer) Past Surgical History: Cancer Surgery, Other Additional Past Surgical Histo: R knee, hernia removal, Alcohol Use: None Drug Use: None Adult General Chief Complaint Chief Complaint: ABDOMINAL PAIN HPI HPI Patient is a 52 year old female with a history of fibromyalgia, sciatica, right breast cancer and treated, who presents today complaining of 9 out of 10 sharp umbilicus pain that began yesterday. Patient states she has history of umbilical hernia and believes this pain is from her hernia. Patient denies any nausea vomiting. Review of Systems Review of Systems Constitutional: Denies fever or chills [] Eyes: Denies change in visual acuity, redness, or eye pain [] HENT: Denies nasal congestion or sore throat [] Respiratory: Denies cough or shortness of breath [] Cardiovascular: No additional information not addressed in HPI [] GI: Umbilicus pain, denies nausea, vomiting, bloody stools or diarrhea [] : Denies dysuria or hematuria [] Musculoskeletal: Denies back pain or joint pain [] Integument: Denies rash or skin lesions [] Neurologic: Denies headache, focal weakness or sensory changes [] All other systems were reviewed and found to be within normal limits, except as documented in this note. Current Medications Current Medications Current Medications Medications (Trade) Dose Ordered Sig/Trupti Start Time Stop Time Status Last Admin Dose Admin Acetaminophen/ Hydrocodone Bitart (Lortab 5/325) 2 tab 1X ONCE 07/19/17 11:00 07/19/17 11:01 DC 07/19/17 11:15 2 TAB Morphine Sulfate 5 mg 1X ONCE 07/19/17 12:45 07/19/17 12:46 DC 07/19/17 12:45 5 MG Ondansetron HCl (Zofran Odt) 4 mg 1X ONCE 07/19/17 11:00 07/19/17 11:01 DC 07/19/17 11:00 4 MG Allergies Allergies Allergies Coded Allergies Type Severity Reaction Last Updated Verified Penicillins Allergy Intermediate Rash 06/02/16 Yes strawberry Allergy Intermediate 06/02/16 Yes Physical Exam Physical Exam Constitutional: Well developed, well nourished, no acute distress, non-toxic appearance. [] HENT: Normocephalic, atraumatic, bilateral external ears normal, oropharynx moist, no oral exudates, nose normal. [] Eyes: PERRLA, EOMI, conjunctiva normal, no discharge. [] Neck: Normal range of motion, no tenderness, supple, no stridor. [] Cardiovascular:Heart rate regular rhythm, no murmur [] Lungs & Thorax: Bilateral breath sounds clear to auscultation [] Abdomen: Rounded abdomen. Bowel sounds normal, soft, palpable mass noted on the left side of the umbilicus, tenderness around the umbilicus as well as on the left side of the umbilicus, no right upper quadrant or right lower quadrant tenderness, no masses, no pulsatile masses. [] Skin: Warm, dry, no erythema, no rash. [] Back: No tenderness, no CVA tenderness. [] Extremities: No tenderness, no cyanosis, no clubbing, ROM intact, no edema. [] Neurologic: Alert and oriented X 3, normal motor function, normal sensory function, no focal deficits noted. [] Psychologic: Affect normal, judgement normal, mood normal. [] Current Patient Data Vital Signs Vital Signs Date Time Temp Pulse Resp B/P (MAP) Pulse Ox O2 Delivery O2 Flow Rate FiO2 07/19/17 13:15 60 16 119/90 (100) 97 Room Air 07/19/17 10:58 97.7 97.7 Lab Values Laboratory Tests Test 07/19/17 10:45 07/19/17 11:03 Urine Collection Type Unknown Urine Color Yellow Urine Clarity Clear Urine pH 5.5 Urine Specific [place] 1.015 Urine Protein Negative mg/dL (NEG-TRACE) Urine Glucose (UA) Negative mg/dL (NEG) Urine Ketones (Stick) Negative mg/dL (NEG) Urine Blood Negative (NEG) Urine Nitrite Negative (NEG) Urine Bilirubin Negative (NEG) Urine Urobilinogen Dipstick 0.2 mg/dL (0.2 mg/dL) Urine Leukocyte Esterase Moderate (NEG) Urine RBC 1-2 /HPF (0-2) Urine WBC 11-20 /HPF (0-4) Urine Squamous Epithelial Cells Many /LPF Urine Bacteria Mod /HPF (0-FEW) Urine Mucus Marked /LPF White Blood Count 5.2 x10^3/uL (4.0-11.0) Red Blood Count 4.82 x10^6/uL (3.50-5.40) Hemoglobin 15.0 g/dL (12.0-15.5) Hematocrit 45.2 % (36.0-47.0) Mean Corpuscular Volume 94 fL (79-100) Mean Corpuscular Hemoglobin 31 pg (25-35) Mean Corpuscular Hemoglobin Concent 33 g/dL (31-37) Red Cell Distribution Width 13.0 % (11.5-14.5) Platelet Count 122 x10^3/uL (140-400) L Neutrophils (%) (Auto) 47 % (31-73) Lymphocytes (%) (Auto) 43 % (24-48) Monocytes (%) (Auto) 7 % (0-9) Eosinophils (%) (Auto) 2 % (0-3) Basophils (%) (Auto) 1 % (0-3) Neutrophils # (Auto) 2.4 x10^3uL (1.8-7.7) Lymphocytes # (Auto) 2.2 x10^3/uL (1.0-4.8) Monocytes # (Auto) 0.3 x10^3/uL (0.0-1.1) Eosinophils # (Auto) 0.1 x10^3/uL (0.0-0.7) Basophils # (Auto) 0.1 x10^3/uL (0.0-0.2) Sodium Level 142 mmol/L (136-145) Potassium Level 4.3 mmol/L (3.5-5.1) Chloride Level 105 mmol/L (98-107) Carbon Dioxide Level 31 mmol/L (21-32) Anion Gap 6 (6-14) Blood Urea Nitrogen 13 mg/dL (7-20) Creatinine 0.8 mg/dL (0.6-1.0) Estimated GFR (Cockcroft-Gault) 90.4 BUN/Creatinine Ratio 16 (6-20) Glucose Level 71 mg/dL (70-99) Lactic Acid Level 1.3 mmol/L (0.4-2.0) Calcium Level 9.3 mg/dL (8.5-10.1) Total Bilirubin 0.5 mg/dL (0.2-1.0) Aspartate Amino Transferase (AST) 25 U/L (15-37) Alanine Aminotransferase (ALT) 39 U/L (14-59) Alkaline Phosphatase 82 U/L (46-116) Total Protein 7.4 g/dL (6.4-8.2) Albumin 3.6 g/dL (3.4-5.0) Albumin/Globulin Ratio 0.9 (1.0-1.7) L Lipase 84 U/L (73-393) Laboratory Tests 07/19/17 11:03 Laboratory Tests 07/19/17 11:03 EKG EKG [] Radiology/Procedures Radiology/Procedures []PROCEDURE: CT ABDOMEN PELVIS WO CONTRAST CT ABDOMEN PELVIS WO CONTRAST History:Umbilical pain radiating to the back Technique: Noncontrast CT imaging was performed of the abdomen and pelvis, multiplanar reconstruction images submitted. Exposure: One or more of the following individualized dose reduction techniques were utilized for this exam: 1. Automated exposure control.2. Adjustment of the mA and/or KV according to patient size.3. Use of iterative reconstruction technique. Comparison: 03/01/2016 Findings:There is mild atelectasis of the visualized lung bases bilaterally. Accurate evaluation of the abdominal visceral organs is limited without intravenous contrast. There is no obvious focal abnormality of the liver, pancreas, spleen, gallbladder. There is no adrenal nodularity. There is no hydronephrosis. There are no renal calculi. No convincing ureteral calculi are identified. There are multiple phleboliths in the pelvis. There is a ventral hernia to the left of the midline near the umbilicus which contains fat only, neck on the order of 1.1 cm and transverse dimension of hernia sac 4.8 cm overall larger than previously. There is strandy change in the hernia sac. The is a smaller defect of the fascia to the right of the midline which does not contain bowel. There is some variable retained stool in the colon. Small bowel is not significantly dilated. At least a segment of normal appendix is believed to be visualized. There are a few scattered small sclerotic foci which are nonspecific such as of the L5 vertebral body, superior L4 vertebral body, and right iliac bone. There is degenerative change of the pubic symphysis. Impression: 1.There is fat-containing ventral hernia near the umbilicus to the left of the midline which is larger comparing with previous exam, no internal bowel. There is internal strandy density, could be seen with incarceration or strangulation. 2. There is no urolithiasis or hydronephrosis. 3. There are a few scattered small sclerotic foci as stated, cannot otherwise be accurately characterized. DICTATED and SIGNED BY: APURVA PERDOMO MD DATE: 07/19/17 1139 CC: STAN STAPLETON APRN; NON,STAFF; UNKNOWN PCP NAME ~ Course & Med Decision Making Course & Med Decision Making Pertinent Labs and Imaging studies reviewed. (See chart for details) Patient is in the ED with umbilicus pain and is concerned it's coming from her hernia. She's had one before. CBC CMP lipase with no acute findings. CT of the abdomen and pelvic was noted for a fat containing ventral hernia with possible strangulation or incarceration. Consulted with Dr. Colby who came to the Ed to see patient Consulted with Dr. Benjamin who accepted patient for admission. Tom Disclaimer Dragon Disclaimer This electronic medical record was generated, in whole or in part, using a voice recognition dictation system. Departure Departure Impression: Primary Impression: Incarcerated ventral hernia Disposition: ADMITTED INPATIENT Condition: STABLE Referrals: UNKNOWN PCP NAME (PCP) STAN STAPLETON APRN Jul 19, 2017 11:00
[2017-07-19 11:19] LABS: BASO # 0.1 x10^3/uL (0.0-0.2); BASO % 1 % (0-3); EOS % 2 % (0-3); HEMATOCRIT 45.2 % (36.0-47.0); LYMPH # 2.2 x10^3/uL (1.0-4.8); LYMPH % 43 % (24-48); MEAN CORPUSCULAR HEMOGLOBIN 31 pg (25-35); MEAN CORPUSCULAR HGB CONC 33 g/dL (31-37); MEAN CORPUSCULAR VOLUME 94 fL (79-100); MONO % 7 % (0-9); NEUT % 47 % (31-73); PLATELET COUNT 122 x10^3/uL (140-400); RED BLOOD COUNT 4.82 x10^6/uL (3.50-5.40); WHITE BLOOD COUNT 5.2 x10^3/uL (4.0-11.0)
[2017-07-19 11:22] LABS: BILIRUBIN,URINE NEGATIVE (NEG); GLUCOSE,URINE NEGATIVE (NEG); NITRITE,URINE NEGATIVE (NEG); PH,URINE 5.5; PROTEIN,URINE NEGATIVE (NEG-TRACE); UROBILINOGEN,URINE 0.2 mg/dL (0.2 mg/dL)
[2017-07-19 11:25] LABS: CALCIUM 9.3 mg/dL (8.5-10.1); CREATININE 0.8 mg/dL (0.6-1.0); GFR 90.4; POTASSIUM 4.3 mmol/L (3.5-5.1)
[2017-07-19 11:28] LABS: SQUAMOUS EPITHELIAL CELL,UR MANY /LPF
[2017-07-19 11:29] LABS: BACTERIA,URINE MOD /HPF (0-FEW)
[2017-07-19 11:30] LABS: ALBUMIN 3.6 g/dL (3.4-5.0); ALBUMIN/GLOBULIN RATIO 0.9 (1.0-1.7); TOTAL BILIRUBIN 0.5 mg/dL (0.2-1.0); TOTAL PROTEIN 7.4 g/dL (6.4-8.2)
--- NOTE | 2017-07-19 11:52 | RAD ---
CT ABDOMEN PELVIS WO CONTRAST History:Umbilical pain radiating to the back Technique: Noncontrast CT imaging was performed of the abdomen and pelvis, multiplanar reconstruction images submitted. Exposure: One or more of the following individualized dose reduction techniques were utilized for this exam: 1. Automated exposure control.2. Adjustment of the mA and/or KV according to patient size.3. Use of iterative reconstruction technique. Comparison: 03/01/2016 Findings:There is mild atelectasis of the visualized lung bases bilaterally. Accurate evaluation of the abdominal visceral organs is limited without intravenous contrast. There is no obvious focal abnormality of the liver, pancreas, spleen, gallbladder. There is no adrenal nodularity. There is no hydronephrosis. There are no renal calculi. No convincing ureteral calculi are identified. There are multiple phleboliths in the pelvis. There is a ventral hernia to the left of the midline near the umbilicus which contains fat only, neck on the order of 1.1 cm and transverse dimension of hernia sac 4.8 cm overall larger than previously. There is strandy change in the hernia sac. The is a smaller defect of the fascia to the right of the midline which does not contain bowel. There is some variable retained stool in the colon. Small bowel is not significantly dilated. At least a segment of normal appendix is believed to be visualized. There are a few scattered small sclerotic foci which are nonspecific such as of the L5 vertebral body, superior L4 vertebral body, and right iliac bone. There is degenerative change of the pubic symphysis. Impression: 1.There is fat-containing ventral hernia near the umbilicus to the left of the midline which is larger comparing with previous exam, no internal bowel. There is internal strandy density, could be seen with incarceration or strangulation. 2. There is no urolithiasis or hydronephrosis. 3. There are a few scattered small sclerotic foci as stated, cannot otherwise be accurately characterized.
[2017-07-19] MEDS ORDERED: MORPHINE SULFATE 10 MG/ML VIAL. IV ONE (12:45)
[2017-07-19] MEDS ORDERED: ONDANSETRON PF 4 MG/2 ML VIAL. IV PRN ×2 (14:15→23:45)
[2017-07-19] MEDS: IV NORMAL SALINE 1000ML BAG 1,000 ML IV SCH (14:15)
--- NOTE | 2017-07-19 14:31 | HP ---
ADMIT DATE: 07/19/2017 CHIEF COMPLAINT: Abdominal pain. HISTORY OF PRESENT ILLNESS: The patient is a pleasant 52-year-old female who is somewhat cognitively challenged. She has abdominal pain. We examined her. She has got incarcerated hernia in the umbilical region. I discussed the case with ER physician. We are going to admit the patient and consulting Dr. Colby. PAST MEDICAL HISTORY: Reviewed in the computerized system. Please refer to the computerized H and P. ALLERGIES: None. FAMILY HISTORY: Hypertension. SOCIAL HISTORY: She does not drink, smoke or take drugs. MEDICATIONS: Reviewed. REVIEW OF SYSTEMS: Somewhat unreliable, but in general she complains of abdominal pain. PHYSICAL EXAMINATION: VITAL SIGNS: Temperature afebrile, pulse 92, respirations 18, blood pressure 132/40. GENERAL: She is alert, cooperative, requesting ice cream. HEART: Normal S1, S2. LUNGS: Clear. ABDOMEN: Soft. Decreased bowel sounds, tender in the epigastrium. There is a mass present that is consistent with an incarcerated hernia ENDOCRINE: No thyromegaly. LYMPHATICS: No cervical nodes. HEMATOPOIETIC: No bruising. ASSESSMENT AND PLAN: Incarcerated hernia. The patient has been admitted. We will consult Dr. Colby. N.p.o., IV fluids, p.r.n. narcotics. Continue home medicines. NATACHA MADDOX DO DR: HAKEEM/sara JOB#: [id number] / [id number]
[2017-07-19 15:00] VITALS: BP 129/91
[2017-07-19] MEDS ORDERED: HYDROmorphone 2 MG/ML VIAL IV PRN (15:00)
[2017-07-19] MEDS: MORPHINE SULFATE 4 MG/ML DISP.SYRIN. IV PRN ×2 (15:24→19:36)
[2017-07-19] MEDS: POTASSIUM CL 20MEQ-0.45% NACL 1,000 ML IV SCH ×2 (15:25→19:37)
[2017-07-19] MEDS: oxyCODONE/APAP 7.5/325 1 TAB TABLET PO PRN (17:17)
[2017-07-19 19:00] VITALS: BP 124/76
[2017-07-19] MEDS: HYDROcodone/APAP 5/325MG 1 TAB TABLET PO PRN (19:36)
[2017-07-19] MEDS: oxyCODONE ER 15 MG TAB.ER.12H PO SCH (19:38)
[2017-07-19] MEDS: ALPRAZolam 0.5 MG TABLET PO SCH (19:39)
[2017-07-19 23:00] VITALS: BP 100/67
[2017-07-19] MEDS ORDERED: PROCHLORPERAZINE 10 MG/2 ML VIAL. IM PRN (23:45)
[2017-07-20] MEDS: IV NORMAL SALINE 1000ML BAG 1,000 ML IV SCH (00:15)
[2017-07-20 03:00] VITALS: BP 112/64
[2017-07-20] MEDS: MORPHINE SULFATE 4 MG/ML DISP.SYRIN. IV PRN ×2 (03:34→11:43)
[2017-07-20] MEDS: BENZOCAINE/MENTHOL LOZENGE. PO PRN (03:34)
[2017-07-20 05:15] LABS: BASO % 1 % (0-3); EOS % 2 % (0-3); HEMOGLOBIN 13.3 g/dL (12.0-15.5); LYMPH # 1.9 x10^3/uL (1.0-4.8); LYMPH % 28 % (24-48); MEAN CORPUSCULAR HEMOGLOBIN 31 pg (25-35); MEAN CORPUSCULAR HGB CONC 33 g/dL (31-37); MEAN CORPUSCULAR VOLUME 94 fL (79-100); MONO % 6 % (0-9); NEUT % 64 % (31-73); PLATELET COUNT 114 x10^3/uL (140-400); RED BLOOD COUNT 4.28 x10^6/uL (3.50-5.40); RED CELL DISTRIBUTION WIDTH 12.7 % (11.5-14.5); WHITE BLOOD COUNT 6.7 x10^3/uL (4.0-11.0)
[2017-07-20 05:37] LABS: ALBUMIN 3.3 g/dL (3.4-5.0); ALBUMIN/GLOBULIN RATIO 0.9 (1.0-1.7); CALCIUM 8.5 mg/dL (8.5-10.1); CREATININE 0.8 mg/dL (0.6-1.0); GFR 90.4; POTASSIUM 3.8 mmol/L (3.5-5.1); TOTAL BILIRUBIN 0.5 mg/dL (0.2-1.0); TOTAL PROTEIN 6.8 g/dL (6.4-8.2)
[2017-07-20 07:00] VITALS: BP 122/87
[2017-07-20] MEDS ORDERED: ACETAMINOPHEN 500 MG TABLET PO PRN (07:45)
[2017-07-20] MEDS ORDERED: BUPIVACAINE MPF 0.5% 30 ML VIAL. ONE (07:49)
[2017-07-20 08:06] LABS: PLT ESTIMATE ADEQUATE (ADEQUATE)
[2017-07-20 08:17] LABS: PROTHROMBIN TIME PATIENT 12.9 SEC (11.7-14.0)
[2017-07-20] MEDS: oxyCODONE ER 15 MG TAB.ER.12H PO SCH ×2 (08:59→22:04)
[2017-07-20] MEDS: ALPRAZolam 0.5 MG TABLET PO SCH ×3 (08:59→22:05)
[2017-07-20] MEDS ORDERED: fentaNYL PF VIAL 100 MCG/2 ML VIAL ONE ×2 (09:13→11:11)
[2017-07-20] MEDS ORDERED: PROPOFOL 20 ML IV ONE ×2 (09:13→11:11)
[2017-07-20] MEDS ORDERED: LIDOCAINE 2% PF Vial for OR 5 ML VIAL. ONE (09:13)
[2017-07-20] MEDS ORDERED: ROCURONIUM 50 MG/5 ML VIAL. ONE (09:13)
--- NOTE | 2017-07-20 09:40 | PDOC ---
PROGRESS NOTES Chief Complaint Chief Complaint 1. Incarcerated ventral hernia 2. COgnitive delay 3. UTI, incidental, asymptomatic History of Present Illness History of Present Illness ABd pain but controlled by meds Scheduled for ventral hernia repair later Incidental UTI on labs, asymptomatic, hives with PCN PLAN: Start levaquin for UTI Add pT.INR to labs since oR later NPO LAbs tmr post op PT.OT Vitals Vitals Vital Signs Date Time Temp Pulse Resp B/P (MAP) Pulse Ox O2 Delivery O2 Flow Rate FiO2 07/20/17 08:57 98.2 72 16 126/82 97 Room Air 98.2 Physical Exam General: Alert, Oriented X3, Cooperative Heart: Regular rate, Normal S1, Normal S2 Lungs: Clear Abdomen: Normal bowel sounds, Soft Extremities: No clubbing, No cyanosis Skin: No rashes, No breakdown Labs LABS Laboratory Tests Test 07/19/17 10:45 07/19/17 11:03 07/19/17 16:15 07/20/17 03:45 Urine Collection Type Unknown Urine Color Yellow Urine Clarity Clear Urine pH 5.5 Urine Specific [place] 1.015 Urine Protein Negative mg/dL (NEG-TRACE) Urine Glucose (UA) Negative mg/dL (NEG) Urine Ketones (Stick) Negative mg/dL (NEG) Urine Blood Negative (NEG) Urine Nitrite Negative (NEG) Urine Bilirubin Negative (NEG) Urine Urobilinogen Dipstick 0.2 mg/dL (0.2 mg/dL) Urine Leukocyte Esterase Moderate (NEG) Urine RBC 1-2 /HPF (0-2) Urine WBC 11-20 /HPF (0-4) Urine Squamous Epithelial Cells Many /LPF Urine Bacteria Mod /HPF (0-FEW) Urine Mucus Marked /LPF White Blood Count 5.2 x10^3/uL (4.0-11.0) 6.7 x10^3/uL (4.0-11.0) Red Blood Count 4.82 x10^6/uL (3.50-5.40) 4.28 x10^6/uL (3.50-5.40) Hemoglobin 15.0 g/dL (12.0-15.5) 13.3 g/dL (12.0-15.5) Hematocrit 45.2 % (36.0-47.0) 40.0 % (36.0-47.0) Mean Corpuscular Volume 94 fL (79-100) 94 fL (79-100) Mean Corpuscular Hemoglobin 31 pg (25-35) 31 pg (25-35) Mean Corpuscular Hemoglobin Concent 33 g/dL (31-37) 33 g/dL (31-37) Red Cell Distribution Width 13.0 % (11.5-14.5) 12.7 % (11.5-14.5) Platelet Count 122 x10^3/uL (140-400) 114 x10^3/uL (140-400) Neutrophils (%) (Auto) 47 % (31-73) 64 % (31-73) Lymphocytes (%) (Auto) 43 % (24-48) 28 % (24-48) Monocytes (%) (Auto) 7 % (0-9) 6 % (0-9) Eosinophils (%) (Auto) 2 % (0-3) 2 % (0-3) Basophils (%) (Auto) 1 % (0-3) 1 % (0-3) Neutrophils # (Auto) 2.4 x10^3uL (1.8-7.7) 4.3 x10^3uL (1.8-7.7) Lymphocytes # (Auto) 2.2 x10^3/uL (1.0-4.8) 1.9 x10^3/uL (1.0-4.8) Monocytes # (Auto) 0.3 x10^3/uL (0.0-1.1) 0.4 x10^3/uL (0.0-1.1) Eosinophils # (Auto) 0.1 x10^3/uL (0.0-0.7) 0.1 x10^3/uL (0.0-0.7) Basophils # (Auto) 0.1 x10^3/uL (0.0-0.2) 0.0 x10^3/uL (0.0-0.2) Sodium Level 142 mmol/L (136-145) 136 mmol/L (136-145) Potassium Level 4.3 mmol/L (3.5-5.1) 3.8 mmol/L (3.5-5.1) Chloride Level 105 mmol/L (98-107) 103 mmol/L (98-107) Carbon Dioxide Level 31 mmol/L (21-32) 29 mmol/L (21-32) Anion Gap 6 (6-14) 4 (6-14) Blood Urea Nitrogen 13 mg/dL (7-20) 9 mg/dL (7-20) Creatinine 0.8 mg/dL (0.6-1.0) 0.8 mg/dL (0.6-1.0) Estimated GFR (Cockcroft-Gault) 90.4 90.4 BUN/Creatinine Ratio 16 (6-20) 11 (6-20) Glucose Level 71 mg/dL (70-99) 91 mg/dL (70-99) Lactic Acid Level 1.3 mmol/L (0.4-2.0) 1.5 mmol/L (0.4-2.0) Calcium Level 9.3 mg/dL (8.5-10.1) 8.5 mg/dL (8.5-10.1) Total Bilirubin 0.5 mg/dL (0.2-1.0) 0.5 mg/dL (0.2-1.0) Aspartate Amino Transf (AST/SGOT) 25 U/L (15-37) 23 U/L (15-37) Alanine Aminotransferase (ALT/SGPT) 39 U/L (14-59) 34 U/L (14-59) Alkaline Phosphatase 82 U/L (46-116) 68 U/L (46-116) Total Protein 7.4 g/dL (6.4-8.2) 6.8 g/dL (6.4-8.2) Albumin 3.6 g/dL (3.4-5.0) 3.3 g/dL (3.4-5.0) Albumin/Globulin Ratio 0.9 (1.0-1.7) 0.9 (1.0-1.7) Lipase 84 U/L (73-393) Platelet Estimate Adequate (ADEQUATE) Large Platelets Present Review of Systems Review of Systems abd pain,no fevers, no cp, soa etc Assessment and Plan Assessmemt and Plan Problems Medical Problems: (1) Incarcerated ventral hernia Status: Acute Problems: Comment Review of Relevant I have reviewed the following items rogelio (where applicable) has been applied. Labs Laboratory Tests Test 07/19/17 10:45 07/19/17 11:03 07/19/17 16:15 07/20/17 03:45 Urine Collection Type Unknown Urine Color Yellow Urine Clarity Clear Urine pH 5.5 Urine Specific [place] 1.015 Urine Protein Negative mg/dL (NEG-TRACE) Urine Glucose (UA) Negative mg/dL (NEG) Urine Ketones (Stick) Negative mg/dL (NEG) Urine Blood Negative (NEG) Urine Nitrite Negative (NEG) Urine Bilirubin Negative (NEG) Urine Urobilinogen Dipstick 0.2 mg/dL (0.2 mg/dL) Urine Leukocyte Esterase Moderate (NEG) Urine RBC 1-2 /HPF (0-2) Urine WBC 11-20 /HPF (0-4) Urine Squamous Epithelial Cells Many /LPF Urine Bacteria Mod /HPF (0-FEW) Urine Mucus Marked /LPF White Blood Count 5.2 x10^3/uL (4.0-11.0) 6.7 x10^3/uL (4.0-11.0) Red Blood Count 4.82 x10^6/uL (3.50-5.40) 4.28 x10^6/uL (3.50-5.40) Hemoglobin 15.0 g/dL (12.0-15.5) 13.3 g/dL (12.0-15.5) Hematocrit 45.2 % (36.0-47.0) 40.0 % (36.0-47.0) Mean Corpuscular Volume 94 fL (79-100) 94 fL (79-100) Mean Corpuscular Hemoglobin 31 pg (25-35) 31 pg (25-35) Mean Corpuscular Hemoglobin Concent 33 g/dL (31-37) 33 g/dL (31-37) Red Cell Distribution Width 13.0 % (11.5-14.5) 12.7 % (11.5-14.5) Platelet Count 122 x10^3/uL (140-400) 114 x10^3/uL (140-400) Neutrophils (%) (Auto) 47 % (31-73) 64 % (31-73) Lymphocytes (%) (Auto) 43 % (24-48) 28 % (24-48) Monocytes (%) (Auto) 7 % (0-9) 6 % (0-9) Eosinophils (%) (Auto) 2 % (0-3) 2 % (0-3) Basophils (%) (Auto) 1 % (0-3) 1 % (0-3) Neutrophils # (Auto) 2.4 x10^3uL (1.8-7.7) 4.3 x10^3uL (1.8-7.7) Lymphocytes # (Auto) 2.2 x10^3/uL (1.0-4.8) 1.9 x10^3/uL (1.0-4.8) Monocytes # (Auto) 0.3 x10^3/uL (0.0-1.1) 0.4 x10^3/uL (0.0-1.1) Eosinophils # (Auto) 0.1 x10^3/uL (0.0-0.7) 0.1 x10^3/uL (0.0-0.7) Basophils # (Auto) 0.1 x10^3/uL (0.0-0.2) 0.0 x10^3/uL (0.0-0.2) Sodium Level 142 mmol/L (136-145) 136 mmol/L (136-145) Potassium Level 4.3 mmol/L (3.5-5.1) 3.8 mmol/L (3.5-5.1) Chloride Level 105 mmol/L (98-107) 103 mmol/L (98-107) Carbon Dioxide Level 31 mmol/L (21-32) 29 mmol/L (21-32) Anion Gap 6 (6-14) 4 (6-14) Blood Urea Nitrogen 13 mg/dL (7-20) 9 mg/dL (7-20) Creatinine 0.8 mg/dL (0.6-1.0) 0.8 mg/dL (0.6-1.0) Estimated GFR (Cockcroft-Gault) 90.4 90.4 BUN/Creatinine Ratio 16 (6-20) 11 (6-20) Glucose Level 71 mg/dL (70-99) 91 mg/dL (70-99) Lactic Acid Level 1.3 mmol/L (0.4-2.0) 1.5 mmol/L (0.4-2.0) Calcium Level 9.3 mg/dL (8.5-10.1) 8.5 mg/dL (8.5-10.1) Total Bilirubin 0.5 mg/dL (0.2-1.0) 0.5 mg/dL (0.2-1.0) Aspartate Amino Transf (AST/SGOT) 25 U/L (15-37) 23 U/L (15-37) Alanine Aminotransferase (ALT/SGPT) 39 U/L (14-59) 34 U/L (14-59) Alkaline Phosphatase 82 U/L (46-116) 68 U/L (46-116) Total Protein 7.4 g/dL (6.4-8.2) 6.8 g/dL (6.4-8.2) Albumin 3.6 g/dL (3.4-5.0) 3.3 g/dL (3.4-5.0) Albumin/Globulin Ratio 0.9 (1.0-1.7) 0.9 (1.0-1.7) Lipase 84 U/L (73-393) Platelet Estimate Adequate (ADEQUATE) Large Platelets Present Laboratory Tests Test 07/19/17 10:45 07/19/17 11:03 07/19/17 16:15 07/20/17 03:45 Urine Collection Type Unknown Urine Color Yellow Urine Clarity Clear Urine pH 5.5 Urine Specific [place] 1.015 Urine Protein Negative mg/dL (NEG-TRACE) Urine Glucose (UA) Negative mg/dL (NEG) Urine Ketones (Stick) Negative mg/dL (NEG) Urine Blood Negative (NEG) Urine Nitrite Negative (NEG) Urine Bilirubin Negative (NEG) Urine Urobilinogen Dipstick 0.2 mg/dL (0.2 mg/dL) Urine Leukocyte Esterase Moderate (NEG) Urine RBC 1-2 /HPF (0-2) Urine WBC 11-20 /HPF (0-4) Urine Squamous Epithelial Cells Many /LPF Urine Bacteria Mod /HPF (0-FEW) Urine Mucus Marked /LPF White Blood Count 5.2 x10^3/uL (4.0-11.0) 6.7 x10^3/uL (4.0-11.0) Red Blood Count 4.82 x10^6/uL (3.50-5.40) 4.28 x10^6/uL (3.50-5.40) Hemoglobin 15.0 g/dL (12.0-15.5) 13.3 g/dL (12.0-15.5) Hematocrit 45.2 % (36.0-47.0) 40.0 % (36.0-47.0) Mean Corpuscular Volume 94 fL (79-100) 94 fL (79-100) Mean Corpuscular Hemoglobin 31 pg (25-35) 31 pg (25-35) Mean Corpuscular Hemoglobin Concent 33 g/dL (31-37) 33 g/dL (31-37) Red Cell Distribution Width 13.0 % (11.5-14.5) 12.7 % (11.5-14.5) Platelet Count 122 x10^3/uL (140-400) 114 x10^3/uL (140-400) Neutrophils (%) (Auto) 47 % (31-73) 64 % (31-73) Lymphocytes (%) (Auto) 43 % (24-48) 28 % (24-48) Monocytes (%) (Auto) 7 % (0-9) 6 % (0-9) Eosinophils (%) (Auto) 2 % (0-3) 2 % (0-3) Basophils (%) (Auto) 1 % (0-3) 1 % (0-3) Neutrophils # (Auto) 2.4 x10^3uL (1.8-7.7) 4.3 x10^3uL (1.8-7.7) Lymphocytes # (Auto) 2.2 x10^3/uL (1.0-4.8) 1.9 x10^3/uL (1.0-4.8) Monocytes # (Auto) 0.3 x10^3/uL (0.0-1.1) 0.4 x10^3/uL (0.0-1.1) Eosinophils # (Auto) 0.1 x10^3/uL (0.0-0.7) 0.1 x10^3/uL (0.0-0.7) Basophils # (Auto) 0.1 x10^3/uL (0.0-0.2) 0.0 x10^3/uL (0.0-0.2) Sodium Level 142 mmol/L (136-145) 136 mmol/L (136-145) Potassium Level 4.3 mmol/L (3.5-5.1) 3.8 mmol/L (3.5-5.1) Chloride Level 105 mmol/L (98-107) 103 mmol/L (98-107) Carbon Dioxide Level 31 mmol/L (21-32) 29 mmol/L (21-32) Anion Gap 6 (6-14) 4 (6-14) Blood Urea Nitrogen 13 mg/dL (7-20) 9 mg/dL (7-20) Creatinine 0.8 mg/dL (0.6-1.0) 0.8 mg/dL (0.6-1.0) Estimated GFR (Cockcroft-Gault) 90.4 90.4 BUN/Creatinine Ratio 16 (6-20) 11 (6-20) Glucose Level 71 mg/dL (70-99) 91 mg/dL (70-99) Lactic Acid Level 1.3 mmol/L (0.4-2.0) 1.5 mmol/L (0.4-2.0) Calcium Level 9.3 mg/dL (8.5-10.1) 8.5 mg/dL (8.5-10.1) Total Bilirubin 0.5 mg/dL (0.2-1.0) 0.5 mg/dL (0.2-1.0) Aspartate Amino Transf (AST/SGOT) 25 U/L (15-37) 23 U/L (15-37) Alanine Aminotransferase (ALT/SGPT) 39 U/L (14-59) 34 U/L (14-59) Alkaline Phosphatase 82 U/L (46-116) 68 U/L (46-116) Total Protein 7.4 g/dL (6.4-8.2) 6.8 g/dL (6.4-8.2) Albumin 3.6 g/dL (3.4-5.0) 3.3 g/dL (3.4-5.0) Albumin/Globulin Ratio 0.9 (1.0-1.7) 0.9 (1.0-1.7) Lipase 84 U/L (73-393) Platelet Estimate Adequate (ADEQUATE) Large Platelets Present Medications Current Medications Acetaminophen/ Hydrocodone Bitart (Lortab 5325) 2 tab 1X ONCE PO Last administered on 07/19/17 11:15; Start 07/19/17 at 11:00; Stop 07/19/17 at 11 :01; Status DC Ondansetron HCl (Zofran Odt) 4 mg 1X ONCE PO Last administered on 07/19/17 11:00; Start 07/19/17 at 11:00; Stop 07/19/17 at 11:01; Status DC Morphine Sulfate 5 mg 1X ONCE IV Last administered on 07/19/17 12:45; Start 07/19/17 at 12:45; Stop 07/19/17 at 12:46; Status DC Ondansetron HCl (Zofran) 4 mg PRN Q8HRS PRN IV NAUSEA/VOMITING Last administered on 07/19/17 17:18; Start 07/19/17 at 14:15; Stop 07/19/17 at 23 :45; Status DC Morphine Sulfate 4 mg PRN Q2HR PRN IV PAIN Last administered on 07/20/17 03: 34; Start 07/19/17 at 14:15; Stop 07/20/17 at 14:14 Sodium Chloride 1,000 ml @ 100 mls/hr Q10H IV ; Start 07/19/17 at 14:15; Stop 07/20/17 at 00:57; Status DC Potassium Chloride/Sodium Chloride 1,000 ml @ 100 mls/hr Q10H IV Last administered on 07/19/17 19:37; Start 07/19/17 at 15:30 Oxycodone/ Acetaminophen (Percocet 7.5/ 325) 1 tab PRN Q4HRS PRN PO PAIN Last administered on 07/19/17 17:17; Start 07/19/17 at 15:00 Hydromorphone HCl (Dilaudid) 1 mg PRN Q3HRS PRN IV pain Last administered on 22:34; Start 07/19/17 at 15:00 Metronidazole 100 ml @ 100 mls/hr 1X PREOP PRN IV PER PROTOCOL; Start at 06:00; Stop 07/20/17 at 18:00 Alprazolam (Xanax) 0.5 mg TID PO Last administered on 07/19/17 19:39; Start 07/19/17 at 21:00 Acetaminophen/ Hydrocodone Bitart (Lortab 5/325) 1 tab PRN Q6HRS PRN PO BREAKTHRU PAIN Last administered on 07/19/17 19:36; Start 07/19/17 at 19:15 Oxycodone HCl (OxyCONTIN) 15 mg Q12HR PO Last administered on 07/19/17 19:38 ; Start 07/19/17 at 21:00 Ondansetron HCl (Zofran) 4 mg PRN Q6HRS PRN IV NAUSEA/VOMITING; Start at 23:45 Prochlorperazine Edisylate (Compazine) 10 mg PRN Q6HRS PRN IM NAUSEA/VOMITING; Start 07/19/17 at 23:45 Throat Lozenges (Cepacol Sore Throat Lozenge) 1 fady PRN Q2HRS PRN PO SORE THROAT Last administered on 07/20/17 03:34; Start 07/20/17 at 00:15 Acetaminophen (Tylenol) 500 mg PRN Q6HRS PRN PO MILD PAIN / TEMP; Start at 07:45 Active Scripts Active [place] 5-325 Tablet (Acetaminophen/Hydrocodone Bitart) 1 Each Tablet 1 Tab PO PRN Q6HRS PRN Oxycontin (Oxycodone HCl) 15 Mg Tab.er.12h 15 Mg PO Q12HR Alprazolam 0.5 Mg Tablet 1 Tab PO TID Vitals/I & O Vital Sign - Last 24 Hours 07/19/17 07/19/17 07/19/17 07/19/17 10:58 12:15 12:47 12:48 Temp 97.7 97.7 Pulse 61 60 61 Resp 20 20 20 B/P (MAP) 124/77 (93) 124/77 (93) 147/96 (113) Pulse Ox 99 99 99 O2 Delivery Room Air clearing for pev shift 07/19/17 07/19/17 07/19/17 07/19/17 13:15 13:15 14:15 15:00 Temp 97.2 97.2 Pulse 60 62 61 Resp 16 20 18 B/P (MAP) 119/90 (100) 122/87 (99) 129/91 (104) Pulse Ox 97 96 96 O2 Delivery clearing for prev shift Room Air Room Air 07/19/17 07/19/17 07/19/17 07/19/17 15:24 17:17 18:17 19:00 Temp 97.5 97.5 Pulse 67 Resp 20 20 18 B/P (MAP) 124/76 (92) Pulse Ox 96 O2 Delivery Room Air Room Air clearing for prev shift Room Air 07/19/17 07/19/17 07/19/17 07/19/17 19:36 19:36 19:38 20:00 Resp 20 20 20 Pulse Ox 96 96 96 O2 Delivery Room Air Room Air Room Air Room Air 07/19/17 07/19/17 07/19/17 07/19/17 20:36 22:34 23:00 23:04 Temp 97.1 97.1 Pulse 57 Resp 20 20 18 20 B/P (MAP) 100/67 (78) Pulse Ox 96 96 98 96 O2 Delivery Room Air Room Air Room Air Room Air 07/19/17 07/20/17 07/20/17 07/20/17 23:38 03:00 03:34 04:04 Temp 97.5 97.5 Pulse 60 Resp 20 18 20 20 B/P (MAP) 112/64 (80) Pulse Ox 96 97 96 96 O2 Delivery Room Air Room Air Room Air Room Air 07/20/17 07/20/17 07:00 08:57 Temp 98.3 98.2 98.3 98.2 Pulse 67 72 Resp 18 16 B/P (MAP) 122/87 (99) 126/82 Pulse Ox 90 97 O2 Delivery Room Air Room Air Intake and Output 07/19/17 07/19/17 07/20/17 15:00 23:00 07:00 Intake Total 1080 ml 800 ml Output Total 1400 ml Balance 1080 ml -600 ml MABEL CAMACHO MD Jul 20, 2017 09:40
[2017-07-20] MEDS ORDERED: DEXAMETHASONE SOD PHOS 20 MG/5 ML VIAL. ONE (10:16)
--- NOTE | 2017-07-20 10:18 | PDOC2 ---
CONSULT Date of Consult Date of Consult DATE: 07/19/17 TIME: 13:00 Reason for Consult Reason for Consult: incarcerated recurrent ventral hernia Referring Physician Referring Physician: Dr Benjamin Identification/Chief Complaint Chief Complaint abdominal pain Problems: Source Source: Chart review, Patient History of Present Illness Reason for Visit: Trent is a 52 yo female who had repair of an umbilical hernia about four years ago in [place]. She presented with abdominal pain in the periumbilical area and the CT shows an incarcerated fat containing hernia. We are asked to see for repair Past Medical History Cardiovascular: No pertinent hx Pulmonary: No pertinent hx Heme/Onc: Cancer Musculoskeletal: low back pain Rheumatologic: Fibromyalgia, Rheumatoid arthritis Infectious disease: No pertinent hx Renal/: No pertinent hx Endocrine: No pertinent hx Past Surgical History Past Surgical History: Hernia Repair, Mastectomy, Other Family History Family History: Cancer, Diabetes Social History No ALCOHOL: none Drugs: None, Other Current Problem List Problem List Problems Medical Problems: (1) Incarcerated ventral hernia Status: Acute Current Medications Current Medications Current Medications Acetaminophen/ Hydrocodone Bitart (Lortab 5/325) 2 tab 1X ONCE PO Last administered on 07/19/17 11:15; Start 07/19/17 at 11:00; Stop 07/19/17 at 11 :01; Status DC Ondansetron HCl (Zofran Odt) 4 mg 1X ONCE PO Last administered on 07/19/17 11:00; Start 07/19/17 at 11:00; Stop 07/19/17 at 11:01; Status DC Morphine Sulfate 5 mg 1X ONCE IV Last administered on 07/19/17 12:45; Start 07/19/17 at 12:45; Stop 07/19/17 at 12:46; Status DC Ondansetron HCl (Zofran) 4 mg PRN Q8HRS PRN IV NAUSEA/VOMITING Last administered on 07/19/17 17:18; Start 07/19/17 at 14:15; Stop 07/19/17 at 23 :45; Status DC Morphine Sulfate 4 mg PRN Q2HR PRN IV PAIN Last administered on 07/20/17 03: 34; Start 07/19/17 at 14:15; Stop 07/20/17 at 14:14 Sodium Chloride 1,000 ml @ 100 mls/hr Q10H IV ; Start 07/19/17 at 14:15; Stop 07/20/17 at 00:57; Status DC Potassium Chloride/Sodium Chloride 1,000 ml @ 100 mls/hr Q10H IV Last administered on 07/19/17 19:37; Start 07/19/17 at 15:30 Oxycodone/ Acetaminophen (Percocet 7.5/ 325) 1 tab PRN Q4HRS PRN PO PAIN Last administered on 07/19/17 17:17; Start 07/19/17 at 15:00 Hydromorphone HCl (Dilaudid) 1 mg PRN Q3HRS PRN IV pain Last administered on 22:34; Start 07/19/17 at 15:00 Metronidazole 100 ml @ 100 mls/hr 1X PREOP PRN IV PER PROTOCOL; Start at 06:00; Stop 07/20/17 at 18:00 Alprazolam (Xanax) 0.5 mg TID PO Last administered on 07/19/17 19:39; Start 07/19/17 at 21:00 Acetaminophen/ Hydrocodone Bitart (Lortab 5/325) 1 tab PRN Q6HRS PRN PO BREAKTHRU PAIN Last administered on 07/19/17 19:36; Start 07/19/17 at 19:15 Oxycodone HCl (OxyCONTIN) 15 mg Q12HR PO Last administered on 07/19/17 19:38 ; Start 07/19/17 at 21:00 Ondansetron HCl (Zofran) 4 mg PRN Q6HRS PRN IV NAUSEA/VOMITING; Start at 23:45 Prochlorperazine Edisylate (Compazine) 10 mg PRN Q6HRS PRN IM NAUSEA/VOMITING; Start 07/19/17 at 23:45 Throat Lozenges (Cepacol Sore Throat Lozenge) 1 fady PRN Q2HRS PRN PO SORE THROAT Last administered on 07/20/17 03:34; Start 07/20/17 at 00:15 Acetaminophen (Tylenol) 500 mg PRN Q6HRS PRN PO MILD PAIN / TEMP; Start at 07:45 Levofloxacin/ Dextrose 100 ml @ 100 mls/hr Q24H IV ; Start 07/20/17 at 09:45 Active Scripts Active [place] 5-325 Tablet (Acetaminophen/Hydrocodone Bitart) 1 Each Tablet 1 Tab PO PRN Q6HRS PRN Oxycontin (Oxycodone HCl) 15 Mg Tab.er.12h 15 Mg PO Q12HR Alprazolam 0.5 Mg Tablet 1 Tab PO TID Allergies Allergies: Coded Allergies: Penicillins (Verified Allergy, Intermediate, Rash, 06/02/16) strawberry (Verified Allergy, Intermediate, 06/02/16) ROS Review of System negative with exception of present complaints Physical Exam General: Alert, Cooperative, No acute distress HEENT: Atraumatic Lungs: Normal air movement Heart: Regular rate Abdomen: Soft, Other (tenderness and non reducible fullness in the umbilical area) Skin: No rashes Neuro: Normal speech Vitals VITALS Vital Signs Date Time Temp Pulse Resp B/P (MAP) Pulse Ox O2 Delivery O2 Flow Rate FiO2 07/20/17 08:57 98.2 72 16 126/82 97 Room Air 98.2 Labs Labs Laboratory Tests Test 07/19/17 10:45 07/19/17 11:03 07/19/17 16:15 07/20/17 03:45 Urine Collection Type Unknown Urine Color Yellow Urine Clarity Clear Urine pH 5.5 Urine Specific [place] 1.015 Urine Protein Negative mg/dL (NEG-TRACE) Urine Glucose (UA) Negative mg/dL (NEG) Urine Ketones (Stick) Negative mg/dL (NEG) Urine Blood Negative (NEG) Urine Nitrite Negative (NEG) Urine Bilirubin Negative (NEG) Urine Urobilinogen Dipstick 0.2 mg/dL (0.2 mg/dL) Urine Leukocyte Esterase Moderate (NEG) Urine RBC 1-2 /HPF (0-2) Urine WBC 11-20 /HPF (0-4) Urine Squamous Epithelial Cells Many /LPF Urine Bacteria Mod /HPF (0-FEW) Urine Mucus Marked /LPF White Blood Count 5.2 x10^3/uL (4.0-11.0) 6.7 x10^3/uL (4.0-11.0) Red Blood Count 4.82 x10^6/uL (3.50-5.40) 4.28 x10^6/uL (3.50-5.40) Hemoglobin 15.0 g/dL (12.0-15.5) 13.3 g/dL (12.0-15.5) Hematocrit 45.2 % (36.0-47.0) 40.0 % (36.0-47.0) Mean Corpuscular Volume 94 fL (79-100) 94 fL (79-100) Mean Corpuscular Hemoglobin 31 pg (25-35) 31 pg (25-35) Mean Corpuscular Hemoglobin Concent 33 g/dL (31-37) 33 g/dL (31-37) Red Cell Distribution Width 13.0 % (11.5-14.5) 12.7 % (11.5-14.5) Platelet Count 122 x10^3/uL (140-400) 114 x10^3/uL (140-400) Neutrophils (%) (Auto) 47 % (31-73) 64 % (31-73) Lymphocytes (%) (Auto) 43 % (24-48) 28 % (24-48) Monocytes (%) (Auto) 7 % (0-9) 6 % (0-9) Eosinophils (%) (Auto) 2 % (0-3) 2 % (0-3) Basophils (%) (Auto) 1 % (0-3) 1 % (0-3) Neutrophils # (Auto) 2.4 x10^3uL (1.8-7.7) 4.3 x10^3uL (1.8-7.7) Lymphocytes # (Auto) 2.2 x10^3/uL (1.0-4.8) 1.9 x10^3/uL (1.0-4.8) Monocytes # (Auto) 0.3 x10^3/uL (0.0-1.1) 0.4 x10^3/uL (0.0-1.1) Eosinophils # (Auto) 0.1 x10^3/uL (0.0-0.7) 0.1 x10^3/uL (0.0-0.7) Basophils # (Auto) 0.1 x10^3/uL (0.0-0.2) 0.0 x10^3/uL (0.0-0.2) Sodium Level 142 mmol/L (136-145) 136 mmol/L (136-145) Potassium Level 4.3 mmol/L (3.5-5.1) 3.8 mmol/L (3.5-5.1) Chloride Level 105 mmol/L (98-107) 103 mmol/L (98-107) Carbon Dioxide Level 31 mmol/L (21-32) 29 mmol/L (21-32) Anion Gap 6 (6-14) 4 (6-14) Blood Urea Nitrogen 13 mg/dL (7-20) 9 mg/dL (7-20) Creatinine 0.8 mg/dL (0.6-1.0) 0.8 mg/dL (0.6-1.0) Estimated GFR (Cockcroft-Gault) 90.4 90.4 BUN/Creatinine Ratio 16 (6-20) 11 (6-20) Glucose Level 71 mg/dL (70-99) 91 mg/dL (70-99) Lactic Acid Level 1.3 mmol/L (0.4-2.0) 1.5 mmol/L (0.4-2.0) Calcium Level 9.3 mg/dL (8.5-10.1) 8.5 mg/dL (8.5-10.1) Total Bilirubin 0.5 mg/dL (0.2-1.0) 0.5 mg/dL (0.2-1.0) Aspartate Amino Transf (AST/SGOT) 25 U/L (15-37) 23 U/L (15-37) Alanine Aminotransferase (ALT/SGPT) 39 U/L (14-59) 34 U/L (14-59) Alkaline Phosphatase 82 U/L (46-116) 68 U/L (46-116) Total Protein 7.4 g/dL (6.4-8.2) 6.8 g/dL (6.4-8.2) Albumin 3.6 g/dL (3.4-5.0) 3.3 g/dL (3.4-5.0) Albumin/Globulin Ratio 0.9 (1.0-1.7) 0.9 (1.0-1.7) Lipase 84 U/L (73-393) Platelet Estimate Adequate (ADEQUATE) Large Platelets Present Prothrombin Time 12.9 SEC (11.7-14.0) Prothromb Time International Ratio 1.0 (0.8-1.1) Laboratory Tests Test 07/19/17 10:45 07/19/17 11:03 07/19/17 16:15 07/20/17 03:45 Urine Collection Type Unknown Urine Color Yellow Urine Clarity Clear Urine pH 5.5 Urine Specific Brinkley 1.015 Urine Protein Negative mg/dL (NEG-TRACE) Urine Glucose (UA) Negative mg/dL (NEG) Urine Ketones (Stick) Negative mg/dL (NEG) Urine Blood Negative (NEG) Urine Nitrite Negative (NEG) Urine Bilirubin Negative (NEG) Urine Urobilinogen Dipstick 0.2 mg/dL (0.2 mg/dL) Urine Leukocyte Esterase Moderate (NEG) Urine RBC 1-2 /HPF (0-2) Urine WBC 11-20 /HPF (0-4) Urine Squamous Epithelial Cells Many /LPF Urine Bacteria Mod /HPF (0-FEW) Urine Mucus Marked /LPF White Blood Count 5.2 x10^3/uL (4.0-11.0) 6.7 x10^3/uL (4.0-11.0) Red Blood Count 4.82 x10^6/uL (3.50-5.40) 4.28 x10^6/uL (3.50-5.40) Hemoglobin 15.0 g/dL (12.0-15.5) 13.3 g/dL (12.0-15.5) Hematocrit 45.2 % (36.0-47.0) 40.0 % (36.0-47.0) Mean Corpuscular Volume 94 fL (79-100) 94 fL (79-100) Mean Corpuscular Hemoglobin 31 pg (25-35) 31 pg (25-35) Mean Corpuscular Hemoglobin Concent 33 g/dL (31-37) 33 g/dL (31-37) Red Cell Distribution Width 13.0 % (11.5-14.5) 12.7 % (11.5-14.5) Platelet Count 122 x10^3/uL (140-400) 114 x10^3/uL (140-400) Neutrophils (%) (Auto) 47 % (31-73) 64 % (31-73) Lymphocytes (%) (Auto) 43 % (24-48) 28 % (24-48) Monocytes (%) (Auto) 7 % (0-9) 6 % (0-9) Eosinophils (%) (Auto) 2 % (0-3) 2 % (0-3) Basophils (%) (Auto) 1 % (0-3) 1 % (0-3) Neutrophils # (Auto) 2.4 x10^3uL (1.8-7.7) 4.3 x10^3uL (1.8-7.7) Lymphocytes # (Auto) 2.2 x10^3/uL (1.0-4.8) 1.9 x10^3/uL (1.0-4.8) Monocytes # (Auto) 0.3 x10^3/uL (0.0-1.1) 0.4 x10^3/uL (0.0-1.1) Eosinophils # (Auto) 0.1 x10^3/uL (0.0-0.7) 0.1 x10^3/uL (0.0-0.7) Basophils # (Auto) 0.1 x10^3/uL (0.0-0.2) 0.0 x10^3/uL (0.0-0.2) Sodium Level 142 mmol/L (136-145) 136 mmol/L (136-145) Potassium Level 4.3 mmol/L (3.5-5.1) 3.8 mmol/L (3.5-5.1) Chloride Level 105 mmol/L (98-107) 103 mmol/L (98-107) Carbon Dioxide Level 31 mmol/L (21-32) 29 mmol/L (21-32) Anion Gap 6 (6-14) 4 (6-14) Blood Urea Nitrogen 13 mg/dL (7-20) 9 mg/dL (7-20) Creatinine 0.8 mg/dL (0.6-1.0) 0.8 mg/dL (0.6-1.0) Estimated GFR (Cockcroft-Gault) 90.4 90.4 BUN/Creatinine Ratio 16 (6-20) 11 (6-20) Glucose Level 71 mg/dL (70-99) 91 mg/dL (70-99) Lactic Acid Level 1.3 mmol/L (0.4-2.0) 1.5 mmol/L (0.4-2.0) Calcium Level 9.3 mg/dL (8.5-10.1) 8.5 mg/dL (8.5-10.1) Total Bilirubin 0.5 mg/dL (0.2-1.0) 0.5 mg/dL (0.2-1.0) Aspartate Amino Transf (AST/SGOT) 25 U/L (15-37) 23 U/L (15-37) Alanine Aminotransferase (ALT/SGPT) 39 U/L (14-59) 34 U/L (14-59) Alkaline Phosphatase 82 U/L (46-116) 68 U/L (46-116) Total Protein 7.4 g/dL (6.4-8.2) 6.8 g/dL (6.4-8.2) Albumin 3.6 g/dL (3.4-5.0) 3.3 g/dL (3.4-5.0) Albumin/Globulin Ratio 0.9 (1.0-1.7) 0.9 (1.0-1.7) Lipase 84 U/L (73-393) Platelet Estimate Adequate (ADEQUATE) Large Platelets Present Prothrombin Time 12.9 SEC (11.7-14.0) Prothromb Time International Ratio 1.0 (0.8-1.1) Images Images CT abd/pelvis done on admission is reviewed Assessment/Plan Assessment/Plan incarcerated, recurrent umbilical hernia elective repair explained risks of bleeding, infection, recurrence, possible need for mesh she understands and will proceed. Thanks for consult VLAD ZAMUDIO MD Jul 20, 2017 10:18
[2017-07-20] MEDS ORDERED: SUCCINYLCHOLINE 200 MG/10 ML VIAL. ONE (10:19)
[2017-07-20] MEDS ORDERED: BUPIVACAINE MPF 0.5% 30 ML VIAL. IJ ONE (10:28)
[2017-07-20] MEDS ORDERED: SEVOFLURANE 31 TO 60 MINUTES. IH ONE (10:55)
[2017-07-20] MEDS ORDERED: ONDANSETRON PF 4 MG/2 ML VIAL. ONE (10:55)
[2017-07-20 11:00] VITALS: BP 119/67
--- NOTE | 2017-07-20 11:26 | PDOC ---
BRIEF OPERATIVE NOTE Date: Jul 20, 2017 Pre-Op Diagnosis incarcerated recurrent umbilical hernia Post-Op Diagnosis same Procedure Performed primary repair, partial omentectomy Surgeon Lasha Sheriffs Officer Lore HOLLAND Anesthesia Type: General Blood Loss 10cc IV Fluid 700cc Specimens Obtained hernia sack, omentum Findings incarcerated omentum in the hernia sack Complications none Operative Note WK # [id number] VLAD ZAMUDIO MD Jul 20, 2017 11:26
[2017-07-20] MEDS ORDERED: IV RINGERS,LACTATED 1000ML 1,000 ML IV SCH (11:40)
[2017-07-20] MEDS ORDERED: LIDOCAINE 1% PF 2 ML VIAL. ID PRN (11:45)
[2017-07-20] MEDS ORDERED: MORPHINE SULFATE 2 MG/ML DISP.SYRIN. IV PRN (11:45)
[2017-07-20] MEDS ORDERED: PROCHLORPERAZINE 10 MG/2 ML VIAL. IV PRN (11:45)
[2017-07-20] MEDS ORDERED: ONDANSETRON PF 4 MG/2 ML VIAL. IV PRN (11:45)
[2017-07-20] MEDS ORDERED: HYDROmorphone 2 MG/ML VIAL IV PRN (11:45)
[2017-07-20] MEDS ORDERED: fentaNYL PF VIAL 100 MCG/2 ML VIAL IV PRN (11:45)
--- NOTE | 2017-07-20 11:51 | OP ---
DATE OF SURGERY: 07/20/2017 PREOPERATIVE DIAGNOSIS: Incarcerated recurrent umbilical hernia. POSTOPERATIVE DIAGNOSIS: Incarcerated recurrent umbilical hernia. PROCEDURE: Primary repair with partial omentectomy. SURGEON: Alvin Zamudio MD. FINANCIAL AIDS OFFICER: AMALIA Teixeira ANESTHESIA: General endotracheal. ESTIMATED BLOOD LOSS: 10 mL. INTRAVENOUS FLUIDS: 700 mL. INDICATIONS: The patient is a 52-year-old with a previous umbilical hernia repair, some 4-5 years ago in [place]. She presents with pain and fullness above and to the left of the umbilicus. She is brought for repair. OPERATIVE FINDINGS: There were 2 separate defects present, both containing incarcerated omental tissue. There was adequate [place] tissue for primary closure. DESCRIPTION OF PROCEDURE: The patient brought to the operating suite, given a general endotracheal anesthetic and the abdomen prepped and draped in usual sterile fashion. A 0.5% Marcaine plain was infiltrated along the incision line and vertical bisected by the umbilicus. Dissection carried down to the anterior sheath. The hernia sac was identified, carefully opened and the incarcerated omental contents were excised to allow reduction of the remaining omentum. A second defect inferior lateral to the original was identified and the two connected. Again, omental contents were either resected and/or reduced. This allowed primary closure using a looped 0 PDS in running fashion, tied in the midline. Good hemostasis was present and a correct sponge count was obtained. Wound was closed with a 3-0 Vicryl in subcutaneous tissue and a subcuticular 4-0 Monocryl with Steri-Strips for the skin. Sterile dressing applied. Abdominal binder placed. The patient awakened from her anesthetic and taken to the recovery room in satisfactory condition. ALVIN ZAMUDIO MD DR: MICAH/sara JOB#: [id number] / [id number]
[2017-07-20] MEDS: fentaNYL PF VIAL 100 MCG/2 ML VIAL IV PRN ×2 (12:07→12:30)
[2017-07-20] MEDS: POTASSIUM CL 20MEQ-0.45% NACL 1,000 ML IV SCH ×2 (13:39→21:30)
[2017-07-20 14:35] VITALS: BP 113/69
[2017-07-20] MEDS: oxyCODONE/APAP 7.5/325 1 TAB TABLET PO PRN ×2 (15:22→20:31)
[2017-07-20 19:40] VITALS: BP 99/52
[2017-07-20 23:00] VITALS: BP 115/71
[2017-07-21] MEDS: BENZOCAINE/MENTHOL LOZENGE. PO PRN (00:38)
[2017-07-21] MEDS: oxyCODONE/APAP 7.5/325 1 TAB TABLET PO PRN (01:02)
[2017-07-21 03:19] VITALS: BP 131/72
[2017-07-21] MEDS: HYDROcodone/APAP 5/325MG 1 TAB TABLET PO PRN (03:51)
[2017-07-21 04:56] LABS: BASO % 0 % (0-3); EOS % 0 % (0-3); HEMATOCRIT 39.4 % (36.0-47.0); HEMOGLOBIN 13.1 g/dL (12.0-15.5); LYMPH % 10 % (24-48); MEAN CORPUSCULAR HEMOGLOBIN 31 pg (25-35); MEAN CORPUSCULAR HGB CONC 33 g/dL (31-37); MEAN CORPUSCULAR VOLUME 93 fL (79-100); MONO % 4 % (0-9); NEUT % 86 % (31-73); PLATELET COUNT 111 x10^3/uL (140-400); RED BLOOD COUNT 4.23 x10^6/uL (3.50-5.40); RED CELL DISTRIBUTION WIDTH 12.8 % (11.5-14.5); WHITE BLOOD COUNT 10.1 x10^3/uL (4.0-11.0)
[2017-07-21 05:03] LABS: CREATININE 0.8 mg/dL (0.6-1.0); GFR 90.4; POTASSIUM 4.3 mmol/L (3.5-5.1)
[2017-07-21] MEDS: POTASSIUM CL 20MEQ-0.45% NACL 1,000 ML IV SCH (06:00)
[2017-07-21 07:07] LABS: PLT ESTIMATE DECREASED (ADEQUATE)
[2017-07-21 07:16] VITALS: BP 118/81
[2017-07-21] MEDS ORDERED: ENOXAPARIN 40 MG/0.4 ML SYRINGE. SQ SCH (08:00)
[2017-07-21] MEDS: ALPRAZolam 0.5 MG TABLET PO SCH (09:01)
[2017-07-21] MEDS: oxyCODONE ER 15 MG TAB.ER.12H PO SCH (09:02)
[2017-07-21 11:12] VITALS: BP 118/74
--- NOTE | 2017-07-21 13:11 | PDOC ---
SURGICAL PROGRESS NOTE Subjective tolerating diet, emesis yesterday--none today she wants to go home today urinating ambulating Vital Signs Vital Signs Date Time Temp Pulse Resp B/P (MAP) Pulse Ox O2 Delivery O2 Flow Rate FiO2 07/21/17 11:12 97.6 61 18 118/74 (89) 97 Room Air 97.6 07/20/17 15:22 10.0 I&O Intake and Output 07/21/17 07:00 Intake Total 5596 ml Output Total 1010 ml Balance 4586 ml Intake Oral 1730 ml IV Total 2483 ml Other 1383 ml Output Urine Total 1000 ml Estimated Blood Loss 10 ml # Voids 9 General: Alert, Oriented X3, Cooperative, No acute distress Abdomen: Soft, Other (incision c/d/i, no erythema, binder in place) Labs Laboratory Tests Test 07/19/17 16:15 07/20/17 03:45 07/21/17 03:30 Lactic Acid Level 1.5 mmol/L (0.4-2.0) White Blood Count 6.7 x10^3/uL (4.0-11.0) 10.1 x10^3/uL (4.0-11.0) Red Blood Count 4.28 x10^6/uL (3.50-5.40) 4.23 x10^6/uL (3.50-5.40) Hemoglobin 13.3 g/dL (12.0-15.5) 13.1 g/dL (12.0-15.5) Hematocrit 40.0 % (36.0-47.0) 39.4 % (36.0-47.0) Mean Corpuscular Volume 94 fL (79-100) 93 fL (79-100) Mean Corpuscular Hemoglobin 31 pg (25-35) 31 pg (25-35) Mean Corpuscular Hemoglobin Concent 33 g/dL (31-37) 33 g/dL (31-37) Red Cell Distribution Width 12.7 % (11.5-14.5) 12.8 % (11.5-14.5) Platelet Count 114 x10^3/uL (140-400) 111 x10^3/uL (140-400) Neutrophils (%) (Auto) 64 % (31-73) 86 % (31-73) Lymphocytes (%) (Auto) 28 % (24-48) 10 % (24-48) Monocytes (%) (Auto) 6 % (0-9) 4 % (0-9) Eosinophils (%) (Auto) 2 % (0-3) 0 % (0-3) Basophils (%) (Auto) 1 % (0-3) 0 % (0-3) Neutrophils # (Auto) 4.3 x10^3uL (1.8-7.7) 8.6 x10^3uL (1.8-7.7) Lymphocytes # (Auto) 1.9 x10^3/uL (1.0-4.8) 1.0 x10^3/uL (1.0-4.8) Monocytes # (Auto) 0.4 x10^3/uL (0.0-1.1) 0.4 x10^3/uL (0.0-1.1) Eosinophils # (Auto) 0.1 x10^3/uL (0.0-0.7) 0.0 x10^3/uL (0.0-0.7) Basophils # (Auto) 0.0 x10^3/uL (0.0-0.2) 0.0 x10^3/uL (0.0-0.2) Platelet Estimate Adequate (ADEQUATE) Decreased (ADEQUATE) Large Platelets Present Occ Prothrombin Time 12.9 SEC (11.7-14.0) Prothromb Time International Ratio 1.0 (0.8-1.1) Sodium Level 136 mmol/L (136-145) 137 mmol/L (136-145) Potassium Level 3.8 mmol/L (3.5-5.1) 4.3 mmol/L (3.5-5.1) Chloride Level 103 mmol/L (98-107) 102 mmol/L (98-107) Carbon Dioxide Level 29 mmol/L (21-32) 26 mmol/L (21-32) Anion Gap 4 (6-14) 9 (6-14) Blood Urea Nitrogen 9 mg/dL (7-20) 11 mg/dL (7-20) Creatinine 0.8 mg/dL (0.6-1.0) 0.8 mg/dL (0.6-1.0) Estimated GFR (Cockcroft-Gault) 90.4 90.4 BUN/Creatinine Ratio 11 (6-20) Glucose Level 91 mg/dL (70-99) 157 mg/dL (70-99) Calcium Level 8.5 mg/dL (8.5-10.1) 9.0 mg/dL (8.5-10.1) Total Bilirubin 0.5 mg/dL (0.2-1.0) Aspartate Amino Transf (AST/SGOT) 23 U/L (15-37) Alanine Aminotransferase (ALT/SGPT) 34 U/L (14-59) Alkaline Phosphatase 68 U/L (46-116) Total Protein 6.8 g/dL (6.4-8.2) Albumin 3.3 g/dL (3.4-5.0) Albumin/Globulin Ratio 0.9 (1.0-1.7) Segmented Neutrophils % 83 % (35-66) Band Neutrophils % 5 % (0-9) Lymphocytes % 8 % (24-48) Monocytes % 4 % (0-10) Laboratory Tests Test 07/21/17 03:30 White Blood Count 10.1 x10^3/uL (4.0-11.0) Red Blood Count 4.23 x10^6/uL (3.50-5.40) Hemoglobin 13.1 g/dL (12.0-15.5) Hematocrit 39.4 % (36.0-47.0) Mean Corpuscular Volume 93 fL (79-100) Mean Corpuscular Hemoglobin 31 pg (25-35) Mean Corpuscular Hemoglobin Concent 33 g/dL (31-37) Red Cell Distribution Width 12.8 % (11.5-14.5) Platelet Count 111 x10^3/uL (140-400) Neutrophils (%) (Auto) 86 % (31-73) Lymphocytes (%) (Auto) 10 % (24-48) Monocytes (%) (Auto) 4 % (0-9) Eosinophils (%) (Auto) 0 % (0-3) Basophils (%) (Auto) 0 % (0-3) Neutrophils # (Auto) 8.6 x10^3uL (1.8-7.7) Lymphocytes # (Auto) 1.0 x10^3/uL (1.0-4.8) Monocytes # (Auto) 0.4 x10^3/uL (0.0-1.1) Eosinophils # (Auto) 0.0 x10^3/uL (0.0-0.7) Basophils # (Auto) 0.0 x10^3/uL (0.0-0.2) Segmented Neutrophils % 83 % (35-66) Band Neutrophils % 5 % (0-9) Lymphocytes % 8 % (24-48) Monocytes % 4 % (0-10) Platelet Estimate Decreased (ADEQUATE) Large Platelets Occ Sodium Level 137 mmol/L (136-145) Potassium Level 4.3 mmol/L (3.5-5.1) Chloride Level 102 mmol/L (98-107) Carbon Dioxide Level 26 mmol/L (21-32) Anion Gap 9 (6-14) Blood Urea Nitrogen 11 mg/dL (7-20) Creatinine 0.8 mg/dL (0.6-1.0) Estimated GFR (Cockcroft-Gault) 90.4 Glucose Level 157 mg/dL (70-99) Calcium Level 9.0 mg/dL (8.5-10.1) Problem List Problems Medical Problems: (1) Incarcerated ventral hernia Status: Acute Assessment/Plan s/p hernia repair ok to DC FU 1 week Problems: MAXINE SANCHEZ EDUCATION RESEARCH ANALYST Jul 21, 2017 13:11
--- NOTE | 2017-07-21 13:48 | PDOC3 ---
Discharge Summary Visit Information Date of Admission: Jul 19, 2017 Date of Discharge: Jul 21, 2017 Admitting Diagnosis Comment: 1. Incarcerated ventral hernia s/p herniorrhaphy 2. COgnitive delay 3. UTI, incidental, asymptomatic Final Diagnosis Problems Medical Problems: (1) Incarcerated ventral hernia Status: Acute Brief Hospital Course Allergies Allergies Coded Allergies Type Severity Reaction Last Updated Verified Penicillins Allergy Intermediate Rash 07/20/17 Yes strawberry Allergy Intermediate 07/20/17 Yes Vital Signs Vital Signs Date Time Temp Pulse Resp B/P (MAP) Pulse Ox O2 Delivery O2 Flow Rate FiO2 07/21/17 11:12 97.6 61 18 118/74 (89) 97 Room Air 97.6 07/20/17 15:22 10.0 Lab Results Laboratory Tests Test 07/19/17 16:15 07/20/17 03:45 07/21/17 03:30 Lactic Acid Level 1.5 mmol/L (0.4-2.0) White Blood Count 6.7 x10^3/uL (4.0-11.0) 10.1 x10^3/uL (4.0-11.0) Red Blood Count 4.28 x10^6/uL (3.50-5.40) 4.23 x10^6/uL (3.50-5.40) Hemoglobin 13.3 g/dL (12.0-15.5) 13.1 g/dL (12.0-15.5) Hematocrit 40.0 % (36.0-47.0) 39.4 % (36.0-47.0) Mean Corpuscular Volume 94 fL (79-100) 93 fL (79-100) Mean Corpuscular Hemoglobin 31 pg (25-35) 31 pg (25-35) Mean Corpuscular Hemoglobin Concent 33 g/dL (31-37) 33 g/dL (31-37) Red Cell Distribution Width 12.7 % (11.5-14.5) 12.8 % (11.5-14.5) Platelet Count 114 x10^3/uL (140-400) 111 x10^3/uL (140-400) Neutrophils (%) (Auto) 64 % (31-73) 86 % (31-73) Lymphocytes (%) (Auto) 28 % (24-48) 10 % (24-48) Monocytes (%) (Auto) 6 % (0-9) 4 % (0-9) Eosinophils (%) (Auto) 2 % (0-3) 0 % (0-3) Basophils (%) (Auto) 1 % (0-3) 0 % (0-3) Neutrophils # (Auto) 4.3 x10^3uL (1.8-7.7) 8.6 x10^3uL (1.8-7.7) Lymphocytes # (Auto) 1.9 x10^3/uL (1.0-4.8) 1.0 x10^3/uL (1.0-4.8) Monocytes # (Auto) 0.4 x10^3/uL (0.0-1.1) 0.4 x10^3/uL (0.0-1.1) Eosinophils # (Auto) 0.1 x10^3/uL (0.0-0.7) 0.0 x10^3/uL (0.0-0.7) Basophils # (Auto) 0.0 x10^3/uL (0.0-0.2) 0.0 x10^3/uL (0.0-0.2) Platelet Estimate Adequate (ADEQUATE) Decreased (ADEQUATE) Large Platelets Present Occ Prothrombin Time 12.9 SEC (11.7-14.0) Prothromb Time International Ratio 1.0 (0.8-1.1) Sodium Level 136 mmol/L (136-145) 137 mmol/L (136-145) Potassium Level 3.8 mmol/L (3.5-5.1) 4.3 mmol/L (3.5-5.1) Chloride Level 103 mmol/L (98-107) 102 mmol/L (98-107) Carbon Dioxide Level 29 mmol/L (21-32) 26 mmol/L (21-32) Anion Gap 4 (6-14) 9 (6-14) Blood Urea Nitrogen 9 mg/dL (7-20) 11 mg/dL (7-20) Creatinine 0.8 mg/dL (0.6-1.0) 0.8 mg/dL (0.6-1.0) Estimated GFR (Cockcroft-Gault) 90.4 90.4 BUN/Creatinine Ratio 11 (6-20) Glucose Level 91 mg/dL (70-99) 157 mg/dL (70-99) Calcium Level 8.5 mg/dL (8.5-10.1) 9.0 mg/dL (8.5-10.1) Total Bilirubin 0.5 mg/dL (0.2-1.0) Aspartate Amino Transf (AST/SGOT) 23 U/L (15-37) Alanine Aminotransferase (ALT/SGPT) 34 U/L (14-59) Alkaline Phosphatase 68 U/L (46-116) Total Protein 6.8 g/dL (6.4-8.2) Albumin 3.3 g/dL (3.4-5.0) Albumin/Globulin Ratio 0.9 (1.0-1.7) Segmented Neutrophils % 83 % (35-66) Band Neutrophils % 5 % (0-9) Lymphocytes % 8 % (24-48) Monocytes % 4 % (0-10) Laboratory Tests Test 07/21/17 03:30 White Blood Count 10.1 x10^3/uL (4.0-11.0) Red Blood Count 4.23 x10^6/uL (3.50-5.40) Hemoglobin 13.1 g/dL (12.0-15.5) Hematocrit 39.4 % (36.0-47.0) Mean Corpuscular Volume 93 fL (79-100) Mean Corpuscular Hemoglobin 31 pg (25-35) Mean Corpuscular Hemoglobin Concent 33 g/dL (31-37) Red Cell Distribution Width 12.8 % (11.5-14.5) Platelet Count 111 x10^3/uL (140-400) Neutrophils (%) (Auto) 86 % (31-73) Lymphocytes (%) (Auto) 10 % (24-48) Monocytes (%) (Auto) 4 % (0-9) Eosinophils (%) (Auto) 0 % (0-3) Basophils (%) (Auto) 0 % (0-3) Neutrophils # (Auto) 8.6 x10^3uL (1.8-7.7) Lymphocytes # (Auto) 1.0 x10^3/uL (1.0-4.8) Monocytes # (Auto) 0.4 x10^3/uL (0.0-1.1) Eosinophils # (Auto) 0.0 x10^3/uL (0.0-0.7) Basophils # (Auto) 0.0 x10^3/uL (0.0-0.2) Segmented Neutrophils % 83 % (35-66) Band Neutrophils % 5 % (0-9) Lymphocytes % 8 % (24-48) Monocytes % 4 % (0-10) Platelet Estimate Decreased (ADEQUATE) Large Platelets Occ Sodium Level 137 mmol/L (136-145) Potassium Level 4.3 mmol/L (3.5-5.1) Chloride Level 102 mmol/L (98-107) Carbon Dioxide Level 26 mmol/L (21-32) Anion Gap 9 (6-14) Blood Urea Nitrogen 11 mg/dL (7-20) Creatinine 0.8 mg/dL (0.6-1.0) Estimated GFR (Cockcroft-Gault) 90.4 Glucose Level 157 mg/dL (70-99) Calcium Level 9.0 mg/dL (8.5-10.1) Brief Hospital Course Ms. Taveras is a 52 old female admitted for abd pain was found to have ventral hernia with bowel and fat in it and possible obstruction, Hx of multiple abd sxs in past. Underwent lap herniorrhaphy, Better, cleared from GS to go, Seen and examined Rx [facility] Discharge Information Condition at Discharge: Improved, Stable Disposition/Orders: D/C to Home Scheduled Alprazolam (Alprazolam), 1 TAB PO TID Oxycodone Hcl (Oxycontin), 15 MG PO Q12HR Scheduled PRN Hydrocodone/Apap 5-325 (Candor 5-325 Tablet), 1 TAB PO PRN Q6HRS PRN for PAIN MABEL CAMACHO MD Jul 21, 2017 13:48
--- NOTE | 2017-07-21 13:52 | PATHOLOGY ---
PATHOLOGY REPORT * * * * * * * * FINAL DIAGNOSIS: Segments of focal mesothelial-lined fibromembranous and fibroadipose tissue, recurrent umbilical hernia repair: - Hernia sac showing congestion and focal chronic inflammation. (JPM:pit; 07/21/2017) REPORT ELECTRONICALLY SIGNED BY: Saúl Carreon M.D. DATE/TIME: 07/21/2017 13:52 * * * * * * * * GROSS PATHOLOGY: Received in formalin labeled "Alverto Roger, hernia sac and incarcerated contents," are multiple segments of fibroadipose tissue admixed with fibromembranous tissue measuring 7.5 x 7.3 x 2.6 cm. No nodules or lesions are identified. [place] tissue is submitted in cassette A1. (DAC; 07/20/2017) INITIAL CPT CODE(S): A; 82983 Professional services performed by [facility] [place] [address] Technical services performed by [facility] at [address] [place] [address], [address], [place] [address]. SPECIMEN(S) RECEIVED: A.Hernia sac and incarcerated contents CLINICAL HISTORY: Incarcerated/strangulated hernia PATIENT: ALVERTO ROGER /AGE: 6 1965 (Age: 52) PATIENT #: [id number] ALT CASE #: SPECIMEN COLLECTION DATE: 07/20/2017 SPECIMEN RECEIVED DATE: 07/20/2017 [facility] - [id number] [place] [address] - PHONE: [phone] * * * END OF REPORT * * *
== END 2017-07-21 14:10 | disposition home or self-care (01) | DRG 354 ==
LOC: ER 10:40 → 4 NORTH 13:53
PROVIDERS: ADMIT Internal Medicine; ATTEND Internal Medicine
PROC: 0DBU0ZZ Excision of Omentum, Open Approach (ICD-10-PCS; 2017-07-20)
PROC: 0WQF0ZZ Repair Abdominal Wall, Open Approach (ICD-10-PCS; principal; 2017-07-20 10:00)
DX: K43.0 Incisional hernia with obstruction, without gangrene (principal); N39.0 Urinary tract infection, site not specified; M06.9 Rheumatoid arthritis, unspecified; M79.7 Fibromyalgia; M54.5 Low back pain; Z88.0 Allergy status to penicillin; Z91.018 Allergy to other foods; Z82.49 Family history of ischemic heart disease and other diseases of the circulatory system; Z83.3 Family history of diabetes mellitus; Z85.3 Personal history of malignant neoplasm of breast; Z90.10 Acquired absence of unspecified breast and nipple
CPT/HCPCS: 36415; 74176; 80048; 80053; 81001; 83605; 83690; 85007; 85025; 85610; 88302; 96374; C1769; J0330; J0780; J1100; J1170; J1650; J2270; J2405; J2704; J3010; J3490; Q0162; 97110; 99285-25; J2001

== ENCOUNTER 2017-11-12 05:50 | Emergency (ER) | payer OTHER ==
[2017-11-12 06:17] LABS: ADD MAN DIFF? NO
[2017-11-12 06:24] LABS: BILIRUBIN,URINE NEGATIVE (NEG); CLARITY,URINE CLOUDY; COLOR,URINE YELLOW; GLUCOSE,URINE NEGATIVE (NEG); NITRITE,URINE NEGATIVE (NEG); PROTEIN,URINE NEGATIVE (NEG-TRACE)
[2017-11-12 06:25] LABS: BASO % 1 % (0-3); EOS # 0.2 x10^3/uL (0.0-0.7); EOS % 3 % (0-3); HEMATOCRIT 41.3 % (36.0-47.0); HEMOGLOBIN 13.8 g/dL (12.0-15.5); LYMPH # 1.2 x10^3/uL (1.0-4.8); LYMPH % 24 % (24-48); MEAN CORPUSCULAR HEMOGLOBIN 30 pg (25-35); MEAN CORPUSCULAR HGB CONC 33 g/dL (31-37); MEAN CORPUSCULAR VOLUME 91 fL (79-100); MONO # 0.4 x10^3/uL (0.0-1.1); MONO % 8 % (0-9); NEUT # 3.3 x10^3uL (1.8-7.7); NEUT % 65 % (31-73); PLATELET COUNT 129 x10^3/uL (140-400); RED BLOOD COUNT 4.52 x10^6/uL (3.50-5.40); RED CELL DISTRIBUTION WIDTH 12.8 % (11.5-14.5); WHITE BLOOD COUNT 5.1 x10^3/uL (4.0-11.0)
[2017-11-12] MEDS: IV NORMAL SALINE 1000ML BAG 1,000 ML IV (06:28)
[2017-11-12] MEDS ORDERED: IBUPROFEN 400 MG TABLET. PO (06:30)
[2017-11-12 06:33] LABS: BACTERIA,URINE MANY /HPF (0-FEW); RBC,URINE 20-40 /HPF (0-2); SQUAMOUS EPITHELIAL CELL,UR MANY /LPF; WBC,URINE TNTC /HPF (0-4)
[2017-11-12] MEDS: NAPROXEN 500 MG TABLET PO (06:33)
[2017-11-12 06:34] LABS: TRICHOMONAS,URINE PRESENT
[2017-11-12 06:37] LABS: ANION GAP 11 (6-14); BLOOD UREA NITROGEN 13 mg/dL (7-20); BUN/CREATININE RATIO 14 (6-20); CALCIUM 8.9 mg/dL (8.5-10.1); CARBON DIOXIDE 26 mmol/L (21-32); CHLORIDE 103 mmol/L (98-107); CREATININE 0.9 mg/dL (0.6-1.0); GLUCOSE 93 mg/dL (70-99); POTASSIUM 3.6 mmol/L (3.5-5.1); SODIUM 140 mmol/L (136-145)
[2017-11-12 06:43] LABS: ALBUMIN 3.3 g/dL (3.4-5.0); ALBUMIN/GLOBULIN RATIO 0.8 (1.0-1.7); ALK PHOS 89 U/L (46-116); ALT (SGPT) 34 U/L (14-59); AST (SGOT) 23 U/L (15-37); TOTAL BILIRUBIN 0.8 mg/dL (0.2-1.0); TOTAL PROTEIN 7.2 g/dL (6.4-8.2)
[2017-11-12 06:54] LABS: INFLUENZA A PATIENT NEGATIVE (NEGATIVE); INFLUENZA B PATIENT NEGATIVE (NEGATIVE); OBC FLU VALID
[2017-11-12] MEDS: ONDANSETRON PF 4 MG/2 ML VIAL. IV (07:21)
[2017-11-12] MEDS: CYCLOBENZAPRINE 10 MG TABLET. PO (07:21)
[2017-11-12] MEDS: metroNIDAZOLE 500 MG TABLET PO (07:21)
== END 2017-11-12 08:50 | disposition home or self-care (01) ==
LOC: ER 05:50
DX: M79.1 Myalgia (principal); R51 Headache; R50.9 Fever, unspecified; R53.81 Other malaise; R05 Cough; R06.02 Shortness of breath; M79.7 Fibromyalgia; G35 Multiple sclerosis; M06.9 Rheumatoid arthritis, unspecified; Z88.0 Allergy status to penicillin; Z91.018 Allergy to other foods; Z90.10 Acquired absence of unspecified breast and nipple
CPT/HCPCS: 36415; 71046; 80053; 81001; 85025; 87804; 87804-59; 93005; 96361; 96374; 99285-25; J2405; J7030